=== PATIENT | male | born 1960 | race Caucasian/White ===

== ENCOUNTER 2018-02-09 19:50 | Inpatient (IN) ==
[2018-02-09] MEDS ORDERED: Aspirin 81 MG TAB.CHEW PO ONE (19:58)
--- NOTE | 2018-02-09 20:02 | Emergency Department Note ---
Disposition Clinical Impression: Chest pain Qualifiers: Chest pain type: unspecified Qualified Code(s): R07.9 - Chest pain, unspecified Disposition: Admitted As Inpatient Condition: Fair Forms: ED Satisfaction Letter Time of Disposition: 21:29 Chest Pain HPI - General Chief Complaint: ED Chest Pain Stated Complaint: Chest Pain Time Seen by Provider: 02/09/18 19:58 Source: patient Mode of arrival: ambulatory Limitations: no limitations Vital Signs Reviewed: Yes Nursing Notes Reviewed: Yes - History of Present Illness HPI Narrative: 57-year-old male who states he does not have insurance is been having chest pain that is exertional in nature for several weeks. He has been following up as an outpatient trying to treat with medications but it is only getting worse. Says when he goes up steps he will develop chest pain and then if he rests it goes away. His factors include hypertension, high cholesterol, cigarette smoking, family history. Pt complaint: chest pain Onset (ago): week(s) Duration: intermittent Onset: during exertion Pain Location: substernal, left chest Severity: moderate Severity scale (1-10): 7 Quality: tightness, aching, heaviness Pain Radiation: none Improves with: rest Worsens with: exertion Context: recent illness Associated symptoms: Reports: dyspnea Treatments prior to arrival chest pain: none - Related Data Allergies Allergy/AdvReac Type Severity Reaction Status Date / Time No Known Allergies Allergy Verified 02/09/18 19:56 All systems ED: reviewed and negative except as stated. Constitutional: Denies: fever, chills, weakness, weight change Eyes: Denies: eye pain, eye discharge, vision change ENT ED: Denies: ear pain, throat pain, dental pain, hearing loss, epistaxis, congestion, dysphagia Cardiovascular: Reports: chest pain. Denies: palpitations, dyspnea on exertion , edema, syncope Respiratory: Denies: cough, dyspnea, wheezes, hemoptysis, stridor Gastrointestinal: Denies: abdominal pain, nausea, vomiting, diarrhea, constipation, hematemesis, melena, hematochezia Genitourinary: Denies: urgency, dysuria, frequency, hematuria Musculoskeletal: Denies: back pain, neck pain, arthralgia, myalgia Integumentary: Denies: rash, abrasion, lesions Neurological: Denies: headache, weakness, numbness, paresthesias, confusion, abnormal gait, vertigo Psychiatric: Denies: anxiety, depression, suicidal thoughts, homicidal thoughts , auditory hallucinations, visual hallucinations Endocrine: Denies: fatigue Hematological/Lymphatic: Denies: easy bleeding, easy bruising Allergic/Immunologic: Denies: facial swelling, urticaria Physical Exam - General Limitations: no limitations General appearance: alert, in no apparent distress - Head Head exam: atraumatic, normocephalic, normal inspection - Eye Eye exam: Present: normal appearance, PERRL, EOMI - ENT ENT exam: normal exam, normal oropharynx, mucous membranes moist - Neck Neck exam: Present: normal inspection, full ROM, trachea midline - Chest Chest inspection: Present: normal inspection, symmetric chest wall rise - Respiratory Respiratory exam: Present: normal lung sounds bilaterally - Cardiovascular Cardiovascular exam: Present: regular rate, normal rhythm, normal heart sounds - Abdominal Exam Abdominal exam: Present: soft, Non-Tender. Absent: tenderness, distention, guarding, rebound, rigidity - Extremities Exam Extremities exam: Present: normal inspection, full ROM. Absent: tenderness, pedal edema - Expanded Lower Extremity Exam Neurovascular/Tendon exam: Absent: motor deficit, sensory deficit, tendon deficit Gait: observed and normal - Back Exam Back exam: Present: normal inspection, full ROM. Absent: tenderness - Neurological Exam Neurological exam: Present: alert, oriented X3 - Psychiatric Psychiatric exam: Present: normal affect, normal mood - Skin Skin exam: Present: warm, dry, intact, normal color Course - Reevaluation(s) Reevaluation #1: 57-year-old with multiple risk factors he has exertional chest pain. Clinical history is very worrisome for cardiac etiology chest pain. His workup here in the ER is negative. Patient will be admitted for further evaluation. Time: 21:28 - Consultations Consultation #1: Discussed with , admit. Time: 21:28 Vital Signs Temperature 98.3 F 02/09/18 19:53 Pulse Rate 87 02/09/18 19:53 Respiratory Rate 18 02/09/18 19:53 Blood Pressure 170/77 02/09/18 19:53 O2 Sat by Pulse Oximetry 97 02/09/18 19:53 Temperature 98.3 F 02/09/18 21:19 Pulse Rate 88 02/09/18 21:19 Respiratory Rate 16 02/09/18 21:19 Blood Pressure 149/86 02/09/18 21:19 O2 Sat by Pulse Oximetry 97 02/09/18 21:19 Oxygen Delivery Oxygen Delivery Room Air Chest Pain - Lab Data Result diagrams: 02/09/18 20:32 02/09/18 20:32 Lab Results 02/09/18 02/09/18 02/09/18 Range/Units 20:32 20:32 20:32 WBC 7.4 (4.3-11.1) K/mcL RBC 4.47 (4.19-5.50) M/mcL Hgb 12.7 L (12.9-16.9) g/dL Hct 36.7 L (37.5-50.1) % MCV 82.1 L (83.0-100.0) fL MCH 28.4 (28.0-33.3) pg MCHC 34.6 (31.6-35.5) g/dL RDW 12.8 (11.5-14.5) % Plt Count 226 (140-400) K/mcL MPV 9.3 L (9.4-12.4) fL Immature Gran % 0.1 (0-4) % Seg Neutrophils % 57.4 % Lymphocytes % 33.7 % Monocytes % 6.0 % Eosinophils % 2.4 % Basophils % 0.4 % Neutrophils # 4.3 (1.6-8.9) K/mcL Lymphocytes # 2.5 (0.6-4.6) K/mcL Monocytes # 0.5 (0.0-1.3) K/mcL Eosinophils # 0.2 (0.0-0.6) K/mcL Basophils # 0.0 (0.0-0.2) K/mcL PT 10.8 (9.4-12.1) Seconds INR 1.0 APTT 34.6 (26.0-36.0) Seconds Sodium 138 (136-145) mEq/L Potassium 3.7 (3.5-5.1) mEq/L Chloride 107 (98-107) mEq/L Carbon Dioxide 21 L (23-29) mEq/L BUN 29 H (6-20) mg/dL Creatinine 1.20 (0.70-1.30) mg/dL Est GFR ( Amer) > 60 (> 60) Est GFR (Non-Af Amer) > 60 (> 60) BUN/Creatinine Ratio 24 (6-26) Glucose 134 H (70-105) mg/dL Calculated Osmolality 294 (280-300) Calcium 9.0 (8.6-10.3) mg/dL Troponin I < 0.03 (< 0.04) ng/mL - EKG Data EKG attestation: Yes I reviewed and interpreted this EKG. EKG shows normal: sinus rhythm Rate: normal Rhythm: NSR [place]/QRS: normal Interpretation: no acute changes Heart Score - Score History: Highly Suspicious EKG: Non Specific repolarisation Disturbance Age: 45-65 Risk Factors: Equal/Greater than 3 risk factor or history of atherosclerotic disease Troponin: Less than normal limit HEART Score Total: 6
[2018-02-09 20:44] LABS: Basophils % 0.4 %; Eosinophils # 0.2 K/mcL (0.0-0.6); Eosinophils % 2.4 %; Hematocrit 36.7 % (37.5-50.1); Hemoglobin 12.7 g/dL (12.9-16.9); Immature Granulocytes % 0.1 % (0-4); Lymphocytes # 2.5 K/mcL (0.6-4.6); Lymphocytes % 33.7 %; Mean Corpuscular HGB Conc 34.6 g/dL (31.6-35.5); Mean Corpuscular Hemoglobin 28.4 pg (28.0-33.3); Mean Corpuscular Volume 82.1 fL (83.0-100.0); Mean Platelet Volume 9.3 fL (9.4-12.4); Monocytes # 0.5 K/mcL (0.0-1.3); Neutrophils # 4.3 K/mcL (1.6-8.9); Platelet Count 226 K/mcL (140-400); Red Blood Count 4.47 M/mcL (4.19-5.50); Red Cell Distribution Width 12.8 % (11.5-14.5); Segmented Neutrophils % 57.4 %
[2018-02-09 20:52] LABS: Prothrombin Time 10.8 Seconds (9.4-12.1)
[2018-02-09 20:54] LABS: Activated Partial Thrombo Time 34.6 Seconds (26.0-36.0)
[2018-02-09 21:17] LABS: BUN/Creatinine Ratio 24 (6-26); Blood Urea Nitrogen 29 mg/dL (6-20); Carbon Dioxide 21 mEq/L (23-29); Chloride 107 mEq/L (98-107); Glucose 134 mg/dL (70-105); Osmolality,Calculated 294 (280-300); Potassium 3.7 mEq/L (3.5-5.1); Sodium 138 mEq/L (136-145); Troponin I < 0.03 ng/mL (< 0.04); eGFR For African Americans > 60 (> 60); eGFR For Non-African Americans > 60 (> 60)
[2018-02-09] MEDS ORDERED: Naloxone 0.4 MG/ML INJ IVP PRN (21:32)
[2018-02-09] MEDS ORDERED: Acetaminophen 325 MG TABLET PO PRN (21:32)
[2018-02-09] MEDS ORDERED: Nitroglycerin 0.4 MG TAB.SUBL SL PRN (21:33)
--- NOTE | 2018-02-09 21:49 | Internal Med History&Physical ---
Date of Encounter: 02/09/18 Time of Encounter: 21:46 Internal Medicine - H&P: HPI Chief complaint: Chest pain Admitted From: Emergency Dept Plans for Post Hospital Care: Home History of present illness: Mr. Islas is a 57 year old male with history of tobacco abuse, hypertension , and hyperlipidemia who presents to the ED complaints of chest pain that has been going on for multiple months and worsened for the last couple of weeks. He describes it as constant for the last 2 weeks and worse with exertion and better with rest. It is substernal with radiation to both arms. Associated diaphoresis. Feels like "heavy weight". He did not tell his about it until today and she decided to bring him in. The patient has no insurance and has been going to urgent care on is on and was given a couple of high cholesterol medications. When he presented to the ED he was hemodynamically stable with laboratory workup showing troponins that were not elevated. EKG with no acute ST or T-wave changes. Denies any fever, chills, nausea, vomiting , abdominal pain, diarrhea, constipation, urinary symptoms, or neurological symptoms. Past Med Surg Social Fam HX - Past Medical History Medical history: hypertension Additional medical history: Chronic Bronchitis Psychiatric history: no psych history - Social History Smoking Status: Current every day smoker Smokeless Tobacco Status: No Alcohol use: none Drug use: none Internal Medicine - H&P: Meds 3 Allergy/AdvReac Type Severity Reaction Status Date / Time No Known Allergies Allergy Verified 02/09/18 19:56 All Systems PM: A 10-system review of systems was performed and is negative for pertinent findings except as documented above in the HPI. Review of systems: All systems reviewed are negative except for as mentioned above - Constitutional Vitals: Temp Pulse Resp BP Pulse Ox 98.3 F 88 16 149/86 97 02/09/18 21:19 02/09/18 21:19 02/09/18 21:19 02/09/18 21:19 02/09/18 21:19 Exam: GEN: NAD HEENT: AT, NC, No cyanosis, oral mucosa is moist, No JVD Lymphatics: No lymphadenoapthy Eyes: Extrocular muscles intact, anicteric CVS:RRR. S1, S2, No m/r/g RESP: CTAB ABD: Soft, NT, ND, +BS EXT: No edema, No rashes, 2+ DP NEURO: Nonfocal, CN II-XII intact, No focal motor or sensory deficits Psych: Cooperative, Not anxious or depressed Internal Med - H&P Results - Labs CBC & Chem 7: 02/09/18 20:32 02/09/18 20:32 Labs: Short CBC 02/09/18 Range/Units 20:32 WBC 7.4 (4.3-11.1) K/mcL Hgb 12.7 L (12.9-16.9) g/dL Hct 36.7 L (37.5-50.1) % Plt Count 226 (140-400) K/mcL Neutrophils # 4.3 (1.6-8.9) K/mcL BMP 02/09/18 20:32 Sodium 138 Potassium 3.7 Chloride 107 Carbon Dioxide 21 L BUN 29 H Creatinine 1.20 Glucose 134 H Calcium 9.0 Cardiac Enzymes 02/09/18 Range/Units 20:32 Troponin I < 0.03 (< 0.04) ng/mL - Impressions ITS Impressions Chest X-Ray 02/09/18 19:58 IMPRESSION: No acute process. D/ / Clyde Wahl MD / Clyde Wahl MD Interpreting Provider: Clyde Wahl MD - Assessment and plan (1) Chest pain Current Visit: Yes Status: Acute Assessment and plan: Admit to telemetry. Trend cardiac enzymes. Stress test in the morning. Check lipid panel and A1c. Aspirin given in the ED. Sublingual nitroglycerin when necessary. Patient has multiple risk factors including tobacco abuse, family history, hypertension, hyperlipidemia. Qualifiers: Chest pain type: unspecified Qualified Code(s): R07.9 - Chest pain, unspecified (2) HTN (hypertension) Current Visit: Yes Status: Acute Assessment and plan: Resume home antihypertensives Qualifiers: Hypertension type: essential hypertension Qualified Code(s): I10 - Essential (primary) hypertension (3) HLD (hyperlipidemia) Current Visit: Yes Status: Acute Assessment and plan: Resume home Qualifiers: Hyperlipidemia type: unspecified Qualified Code(s): E78.5 - Hyperlipidemia , unspecified (4) Tobacco abuse Current Visit: Yes Status: Acute Assessment and plan: Nicotine patch (5) DVT prophylaxis Current Visit: Yes Status: Acute Assessment and plan: Heparin subcutaneous - Time Spent With Patient Total time spent is greater than 50% in coordination of care (as documented) at patient's floor/unit and/or counseling patient:
[2018-02-09] MEDS: Nicotine 21 MG PATCH.TD24 TD SCH (22:39)
[2018-02-09] MEDS: *HR* Heparin 5,000 UNIT/ML VIAL SQ SCH (22:40)
[2018-02-10 02:15] LABS: Basophils % 0.6 %; Eosinophils # 0.2 K/mcL (0.0-0.6); Eosinophils % 2.4 %; Hematocrit 35.1 % (37.5-50.1); Hemoglobin 12.1 g/dL (12.9-16.9); Immature Granulocytes % 0.3 % (0-4); Lymphocytes # 2.4 K/mcL (0.6-4.6); Lymphocytes % 35.8 %; Mean Corpuscular HGB Conc 34.5 g/dL (31.6-35.5); Mean Corpuscular Hemoglobin 28.4 pg (28.0-33.3); Mean Corpuscular Volume 82.4 fL (83.0-100.0); Mean Platelet Volume 9.4 fL (9.4-12.4); Monocytes # 0.5 K/mcL (0.0-1.3); Monocytes % 7.6 %; Neutrophils # 3.5 K/mcL (1.6-8.9); Platelet Count 224 K/mcL (140-400); Red Blood Count 4.26 M/mcL (4.19-5.50); Segmented Neutrophils % 53.3 %
[2018-02-10 02:39] LABS: BUN/Creatinine Ratio 24 (6-26); Blood Urea Nitrogen 28 mg/dL (6-20); Carbon Dioxide 22 mEq/L (23-29); Chloride 108 mEq/L (98-107); Chol/HDL Ratio 7.4 (0-4.9); Cholesterol 266 mg/dL (< 200); Glucose 101 mg/dL (70-105); HDL Cholesterol 36 mg/dL (40-59); LDL Cholesterol,Calculated 168 mg/dL (0-99); Osmolality,Calculated 290 (280-300); Potassium 3.9 mEq/L (3.5-5.1); Sodium 137 mEq/L (136-145); Triglycerides 310 mg/dL (< 150); eGFR For African Americans > 60 (> 60); eGFR For Non-African Americans > 60 (> 60)
[2018-02-10 02:51] LABS: Thyroid Stimulating Hormone 3.344 mcIU/mL (0.340-5.600)
[2018-02-10] MEDS: *HR* Heparin 5,000 UNIT/ML VIAL SQ SCH ×3 (05:48→22:43)
[2018-02-10 06:43] LABS: Estimated Average Glucose 123 mg/dl; Hemoglobin A1C 5.9 %
[2018-02-10] MEDS ORDERED: Regadenoson 0.4 MG/5 ML SYRINGE IVP ONE (06:49)
[2018-02-10] MEDS ORDERED: Isovue-370 500 ML INFUS..BTL IV ONE (12:37)
[2018-02-10] MEDS: predniSONE 20 MG TABLET PO SCH (12:57)
[2018-02-10] MEDS: Lisinopril-HCTZ 20-12.5mg TABLET PO SCH (12:57)
[2018-02-10] MEDS: Aspirin Enteric Coated 81 MG Tablet PO SCH (12:57)
[2018-02-10] MEDS: Cholestyramine 4 GM POWD.PACK PO SCH ×2 (13:02→18:01)
[2018-02-10] MEDS: Nicotine 21 MG PATCH.TD24 TD SCH (13:03)
[2018-02-10] MEDS ORDERED: 0.9 % Sodium Chloride 1,000 ML IVC SCH (14:15)
--- NOTE | 2018-02-10 14:16 | Internal Med Progress Note ---
Date of Encounter: 02/10/18 Time of Encounter: 14:14 - Assessment and plan (1) Chest pain Current Visit: Yes Status: Acute Assessment and plan: presented with central chest pressure/tightness that radiates to bilateral shoulders with associated shortness of breath. Serial troponins negative. EKG without acute ST changes. Stress test with moderate to severe intensity fixed perfusion defect representing infarct, EF 40% and LV is dilated. Cont home ASA, add isosorbide. Cardiology consulted. Continue to monitor on telemetry. Check chest CTA with significant smoking history, history of hypertension and reported shortness of breath. Qualifiers: Chest pain type: unspecified Qualified Code(s): R07.9 - Chest pain, unspecified (2) COPD exacerbation Current Visit: Yes Status: Acute Assessment and plan: Suspected with smoking history, SOB and wheezing on exam. No increase in sputum production, afebrile. No indication for ATB at this time. Steroid burst , bronchodilators. (3) HTN (hypertension) Current Visit: Yes Status: Acute Assessment and plan: per hx. BP controlled. Continue home BP medication. Monitor BP and titrate PRN Qualifiers: Hypertension type: essential hypertension Qualified Code(s): I10 - Essential (primary) hypertension (4) HLD (hyperlipidemia) Current Visit: Yes Status: Acute Assessment and plan: per hx. Cont home medications Qualifiers: Hyperlipidemia type: unspecified Qualified Code(s): E78.5 - Hyperlipidemia , unspecified (5) Tobacco abuse Current Visit: Yes Status: Acute Assessment and plan: History heavy tobacco use. Smokes 2 packs per day for 40 years. Cessation advised. NRT (6) DVT prophylaxis Current Visit: Yes Status: Acute Assessment and plan: Heparin - Time Spent With Patient Total time spent is greater than 50% in coordination of care (as documented) at patient's floor/unit and/or counseling patient: - Subjective Interval history: Seen and examined at bedside. Patient is new to me, information obtained from chart review and patient report. He still complaining of central chest tightness/discomfort that radiates to both shoulders. Nothing makes better or worse. Not reproducible on exam. Also reports associated shortness of breath and wheezing. No fevers or chills. - Constitutional Vitals: Temp Pulse Resp BP Pulse Ox 98.1 F 71 16 118/72 99 02/10/18 11:54 02/10/18 11:54 02/10/18 11:54 02/10/18 11:54 02/10/18 11:54 General appearance: Present: A&O X 3, no acute distress - Head Head exam: Present: atraumatic, normocephalic - Eye Eye exam: Present: PERRL, conjuntiva pink, sclera anicteric Pupils: Present: PERRL - Neck Neck exam general surgery: Present: supple, trachea midline. Absent: lymphadenopathy - Respiratory Respiratory exam: Present: CTAB, wheezes (Mild wheezing). Absent: accessory muscle use, rales, rhonchi - Cardiovascular Cardiovascular exam: Present: RRR, +S1, +S2. Absent: diastolic murmur, gallop, rubs, systolic murmur - GI/Abdominal GI/Abdominal exam: Present: normal bowel sounds, soft, no peritoneal signs. Absent: distended, tenderness - Extremities Exam Extremities exam: Present: warm, radial pulses palpable and symmetrical. Absent : calf tenderness, cyanotic, pedal edema - Neurological Exam Neurological exam: Present: CN II-XII intact, oriented X3, no focal deficits. Absent: pronater drift, facial droop, speech deficit - Skin Skin exam: Present: dry, intact Internal Medicine: Result - Labs CBC & Chem 7: 02/10/18 02:01 02/10/18 02:01 Labs: Short CBC 02/10/18 Range/Units 02:01 WBC 6.6 (4.3-11.1) K/mcL Hgb 12.1 L (12.9-16.9) g/dL Hct 35.1 L (37.5-50.1) % Plt Count 224 (140-400) K/mcL Neutrophils # 3.5 (1.6-8.9) K/mcL BMP 02/10/18 02:01 Sodium 137 Potassium 3.9 Chloride 108 H Carbon Dioxide 22 L BUN 28 H Creatinine 1.17 Glucose 101 Calcium 9.0 Cardiac Enzymes 02/10/18 02/10/18 Range/Units 02:01 09:19 Troponin I < 0.03 < 0.03 (< 0.04) ng/mL - ABG Interpretation ABG results: PT/INR, D-dimer PT 10.8 Seconds (9.4-12.1) 02/09/18 20:32 Consult Discharge Plan - Plan Referrals: Anya Bullard CNP [Primary Care Provider] -
[2018-02-10] MEDS: Ipratropium/Albuterol Neb 3 ML IH SCH ×2 (16:03→22:13)
[2018-02-10] MEDS: Lisinopril 20 MG TABLET PO SCH (18:02)
[2018-02-10] MEDS: Isosorbide MONOnitrate (24 HR) 30 MG TAB.ER.24H PO SCH (18:10)
[2018-02-11] MEDS: Ipratropium/Albuterol Neb 3 ML IH SCH ×4 (04:13→21:27)
[2018-02-11] MEDS: *HR* Heparin 5,000 UNIT/ML VIAL SQ SCH ×3 (05:35→21:43)
[2018-02-11 07:03] LABS: Basophils % 0.1 %; Eosinophils % 0.2 %; Hematocrit 33.2 % (37.5-50.1); Hemoglobin 11.4 g/dL (12.9-16.9); Immature Granulocytes % 0.3 % (0-4); Lymphocytes # 1.3 K/mcL (0.6-4.6); Lymphocytes % 15.4 %; Mean Corpuscular HGB Conc 34.3 g/dL (31.6-35.5); Mean Corpuscular Hemoglobin 28.6 pg (28.0-33.3); Mean Corpuscular Volume 83.4 fL (83.0-100.0); Mean Platelet Volume 9.7 fL (9.4-12.4); Monocytes # 0.6 K/mcL (0.0-1.3); Monocytes % 6.9 %; Neutrophils # 6.7 K/mcL (1.6-8.9); Platelet Count 213 K/mcL (140-400); Red Blood Count 3.98 M/mcL (4.19-5.50); Red Cell Distribution Width 13.2 % (11.5-14.5); Segmented Neutrophils % 77.1 %
[2018-02-11 07:19] LABS: BUN/Creatinine Ratio 23 (6-26); Blood Urea Nitrogen 26 mg/dL (6-20); Calcium 8.5 mg/dL (8.6-10.3); Carbon Dioxide 22 mEq/L (23-29); Chloride 108 mEq/L (98-107); Glucose 129 mg/dL (70-105); Osmolality,Calculated 290 (280-300); Potassium 3.7 mEq/L (3.5-5.1); Sodium 137 mEq/L (136-145); eGFR For African Americans > 60 (> 60); eGFR For Non-African Americans > 60 (> 60)
[2018-02-11] MEDS: Aspirin Enteric Coated 81 MG Tablet PO SCH (09:57)
[2018-02-11] MEDS: predniSONE 20 MG TABLET PO SCH (09:57)
[2018-02-11] MEDS: Lisinopril-HCTZ 20-12.5mg TABLET PO SCH (09:57)
[2018-02-11] MEDS: Isosorbide MONOnitrate (24 HR) 30 MG TAB.ER.24H PO SCH (09:57)
[2018-02-11] MEDS: Nicotine 21 MG PATCH.TD24 TD SCH (09:57)
[2018-02-11] MEDS: Cholestyramine 4 GM POWD.PACK PO SCH ×2 (09:58→16:00)
--- NOTE | 2018-02-11 13:34 | Cardiology Consult Note ---
<Luz Mari - Last Filed: 02/11/18 13:31> Date of Encounter: 02/11/18 Time of Encounter: 11:30 Assessment and Plan (1) Chest pain Status: Acute Per cardiology: -Atypical chest pain. Pain lessens with exertion. -Denies current chest pain. -Stress test with area on inferolateral infarct, no ischemia. -TTE pending. -On asa, imdur. -Risk factors for CAD HTN, HLD, Smoking, Family history. -Will start statin, BB. -PLan for LHC in am. Risks versus benefits of LHC explained to patient. Patient states understanding and agreeable to proceed. Further recommendations pending LHC. Qualifiers: Chest pain type: unspecified Qualified Code(s): R07.9 - Chest pain, unspecified (2) Tobacco abuse Status: Chronic Per cardiology: -Reports smoking 2+ ppd for 40+ years. -Smoking cessation education reviewed with patient. Discussion w patient/family: The assessment and plan as outlined above was discussed with the patient who expressed understanding and agreement. All questions were answered. Thank you for involving us in the care of your patient. Please call with any questions. Discussed and reviewed with , History of Present Illness Consult date: 02/10/18 Requesting physician: Jen Hunter Consult reason: abnornmal stress Chief complaint: chest heaviness History of present illness: Mr. Islas is a 57 year old male with a relevant past medical history of HTN , HLD, tobacco abuse, family history of CAD who presented to [facility] with complaints of chest heaviness. Patient reports symptoms for 2 weeks. Patient states pain is worse when laying down or sitting still. Patient states pain is better with exertion. Reports increased shortness of breath. Denies current chest heaviness. Past Med Surg Social Fam HX - Past Medical History Attestation: Yes The following information was validated with the patient. Source: patient, old records reviewed Medical history: hyperlipidemia, hypertension Additional medical history: Chronic Bronchitis Psychiatric history: no psych history - Social History Smoking Status: Current every day smoker Packs per day: 1.5 Smokeless Tobacco Status: No Alcohol use: none Drug use: none Medications and Allergies Aspirin [Lo-Dose Aspirin EC] 81 mg PO DAILY 02/09/18 [History] Cholestyramine 4 gm PO BIDAC 02/09/18 [History] Ibuprofen [Ibu] 400 mg PO Q6H PRN 02/09/18 [History] Metoprolol [Lopressor] 25 mg PO BID #60 tablet 02/17/18 [Rx] Nicotine Patch [Nicoderm] 21 mg TD DAILY #14 patch.td24 02/17/18 [Rx] OxyCODONE/APAP 5/325 [Percocet 5/325 MG] 1 each PO Q4HR PRN 7 Days #20 tablet [Rx] hydroCHLOROthiazide [Hydrochlorothiazide] 12.5 mg PO DAILY #30 tablet 02/17/18 [ Rx] 3 Allergy/AdvReac Type Severity Reaction Status Date / Time No Known Allergies Allergy Verified 02/09/18 19:56 All Systems Review: The remainder of the systems were reviewed and are negative - Cardiovascular Cardiovascular: as per HPI, chest pain at rest, dyspnea on exertion Physical Examination Vital Signs, Last 4 Hours Temp Pulse Resp BP Pulse Ox 02/11/18 12:16 97.6 F 77 18 111/57 94 General: Conversant, No Apparent Distress HEENT: Atraumatic, Normocephaly, Mucus Membranes Moist Neck: No JVD, Normal carotid pulses Cardiac: Reg Rate and Rhythm, Normal S1 and S2, No Murmur Lungs: Normal Breath Sounds, No Wheeze, Rales, Rhonchi Neuro: Alert and responsive, No focal deficits noted Abdomen: Soft, Non-Tender Skin: No rashes noted on visualized skin Musculoskeletal: No Chest Wall Tenderness Extremities: No Clubbing, No Cyanosis, No Edema, Normal Pulses Results 02/11/18 06:27 02/11/18 06:27 Lab Results Impressions Chest CTA 02/10/18 12:37 IMPRESSION: 1. No findings of pulmonary embolism. 2. Mild bronchial wall thickening potentially due to pulmonary vascular congestion, reactive airways disease, or bronchitis. 3. A few solid nodules in the right upper lobe measure up to 0.3 cm, likely benign sequelae of an infectious or inflammatory process. Consider follow-up chest CT in 12 months as below. RECOMMENDATIONS: Fleischner Society guidelines for follow-up and management of incidentally detected pulmonary nodules: Multiple Solid Nodules: Nodule size less than 6 mm In a high-risk patient, optional CT at 12 months. Radiology 2017 http://pubs.rsna.org/doi/full/10.1148/radiol.[email or web address] D/ / Alexander Lang MD / Alexander Lang MD Interpreting Provider: Alexander Lang MD Active Medications Acetaminophen (Tylenol) 650 mg PO Q6HR PRN PRN Reason: Mild Pain/Fever Stop: 08/11/18 21:33 Albuterol/Ipratropium (Duoneb) 3 ml IH [id number] MADELYN Stop: 08/12/18 16:01 Last Admin: 02/11/18 10:12 Dose: Not Given Aspirin (Aspirin Ec) 81 mg PO DAILY MADELYN Stop: 08/12/18 09:01 Last Admin: 02/11/18 09:57 Dose: 81 mg Cholestyramine Resin (Cholestyramine) 4 gm PO BIDAC MADELYN Stop: 08/12/18 07:31 Last Admin: 02/11/18 09:58 Dose: 4 gm Guaifenesin (Mucinex) 600 mg PO BID PRN PRN Reason: Congestion Stop: 08/13/18 03:35 Last Admin: 02/11/18 05:35 Dose: 600 mg Lisinopril/HCTZ (Prinzide 20-12.5) 1 each PO QAM MADELYN Stop: 08/12/18 09:01 Last Admin: 02/11/18 09:57 Dose: 1 each Heparin Sodium (Porcine) (Heparin) 5,000 unit SQ Q8HCO MADELYN Stop: 08/11/18 22:01 Last Admin: 02/11/18 05:35 Dose: 5,000 unit Heparin Sodium (Porcine) (Heparin Lock) 500 unit IV ONCE PRN PRN Reason: Port [place]ush while in RADIOLOGY Stop: 02/12/18 12:37 Isosorbide Mononitrate (Imdur) 30 mg PO DAILY MADELYN Stop: 08/12/18 14:16 Last Admin: 02/11/18 09:57 Dose: 30 mg Lisinopril (Zestril) 20 mg PO QPM MADELYN PRN Reason: Protocol Stop: 08/12/18 18:01 Last Admin: 02/10/18 18:02 Dose: 20 mg Naloxone HCl (Narcan) 0.4 mg IVP Q2MIN PRN PRN Reason: SEE COMMENTS Stop: 08/11/18 21:33 Nicotine (Nicoderm) 21 mg TD DAILY MADELYN PRN Reason: Protocol Stop: 08/11/18 22:01 Last Admin: 02/11/18 09:57 Dose: 21 mg Nitroglycerin (Nitroglycerin) 0.4 mg SL Q5MIN PRN PRN Reason: Chest Pain Stop: 08/11/18 21:34 Prednisone (Prednisone) 40 mg PO DAILY MADELYN Stop: 08/12/18 12:46 Last Admin: 02/11/18 09:57 Dose: 40 mg Laboratory Tests 02/09/18 02/10/18 02/10/18 20:32 02:01 02:01 Hgb Creatinine Troponin I < 0.03 < 0.03 LDL Cholesterol, Calc 168 H 02/10/18 02/11/18 02/11/18 09:19 06:27 06:27 Hgb 11.4 L Creatinine 1.13 Troponin I < 0.03 LDL Cholesterol, Calc - Imaging and Cardiology Chest Xray: report reviewed Stress Test: report reviewed Echo: pending - EKG Interpretation EKG results cardiology: personally reviewed (ECG with SR, HR 85.), other ( Telemetry reviewed with average HR previous 12 hours noted to be 81, SR. PVCs and PACs noted.) Consult Discharge Plan - Plan Instructions: Myocardial Infarction (DC), Chest Pain (DC), Chronic Obstructive Pulmonary Disease (DC), Chronic Hypertension (DC) Referrals: David Saleem MD [Partnered Physician] - 03/13/18 1:15 pm Anya Bullard CNP [Primary Care Provider] - 02/21/18 5:00 pm (Office is only Open on Mon, Mon, 5-9pm Saturdays 9A to1:00PM Patient will have to call and make follow up appointment) Ammon Hagen [Partnered Physician] - 04/02/18 11:30 am Prescriptions: OxyCODONE/APAP 5/325 [Percocet 5/325 MG] 1 each PO Q4HR PRN 7 Days #20 tablet PRN Reason: Severe Pain hydroCHLOROthiazide [Hydrochlorothiazide] 12.5 mg PO DAILY #30 tablet Metoprolol [Lopressor] 25 mg PO BID #60 tablet Nicotine Patch [Nicoderm] 21 mg TD DAILY #14 patch.td24 <Muñoz,Magno J - Last Filed: 02/19/18 23:38> Date of Encounter: 02/11/18 Time of Encounter: 19:00 - Attending Attestation I have personally performed a face to face evaluation on this patient. I have reviewed and agree with the care plan. History and Exam by me shows CC: Chest pressure Pt reports chest heaviness, occurs with exertion, pressure sensation, provoked when lying down, improves with increased activity. PT also admits to new onset of shortness of breath, occurs with exertion, lasts two to five minutes, resolves with rest. Shorntess of breath is not associated with chest pain or pressure. Pt is an active smoker, up to 2 packs a day for over forty years. ROS: reviwed PMH: reviewed, PE: pt seen and examined, agreed with findings as documented IMP: 1. Atypical chest pain, with multiple risk factors, recommend C to define coronary anatomy, risks and benefits discussed, pt agrees to proceed. 2. Shortness of breath with exertion, very concenring for anginal equivalent, will increase to optimal medical tx, await results of LHC 3. Tobacco abuse, discussed smoking cessation, pt will consider but unwilling ot pick stop date today. Assessment and Plan Discussion w patient/family: The assessment and plan as outlined above was discussed with the patient and/or family members who expressed understanding and agreement. All questions were answered. Thank you for involving us in the care of your patient. Please call with any questions. History of Present Illness History of present illness: Mr. Islas is a 57 year old male All Systems Review: The remainder of the systems were reviewed and are negative Results 02/17/18 00:22 02/17/18 00:22
--- NOTE | 2018-02-11 15:17 | Internal Med Progress Note ---
Date of Encounter: 02/11/18 Time of Encounter: 15:15 - Assessment and plan (1) Chest pain Current Visit: Yes Status: Acute Assessment and plan: presented with central chest pressure/tightness that radiates to bilateral shoulders with associated shortness of breath. Serial troponins negative. EKG without acute ST changes. Stress test with moderate to severe intensity fixed perfusion defect representing infarct, EF 40% and LV is dilated. TTE pending. Cont home ASA. Isosorbide, BB, statin added. Cardiology consulted. Continue to monitor on telemetry. [facility] planned 02/12/18. Cardiology following Qualifiers: Chest pain type: unspecified Qualified Code(s): R07.9 - Chest pain, unspecified (2) COPD exacerbation Current Visit: Yes Status: Acute Assessment and plan: Suspected with smoking history, SOB and wheezing on exam. No increase in sputum production, afebrile. No indication for ATB at this time. Steroid burst , bronchodilators. (3) HTN (hypertension) Current Visit: Yes Status: Acute Assessment and plan: per hx. BP controlled. Continue home BP medication. Monitor BP and titrate PRN Qualifiers: Hypertension type: essential hypertension Qualified Code(s): I10 - Essential (primary) hypertension (4) HLD (hyperlipidemia) Current Visit: Yes Status: Acute Assessment and plan: per hx. Cont home medications Qualifiers: Hyperlipidemia type: unspecified Qualified Code(s): E78.5 - Hyperlipidemia , unspecified (5) Tobacco abuse Current Visit: Yes Status: Chronic Assessment and plan: History heavy tobacco use. Smokes 2 packs per day for 40 years. Cessation advised. NRT (6) Lung nodule Current Visit: Yes Status: Acute Assessment and plan: Chest CTA with a few solid nodules in the right upper lobe measuring up to 0.3 cm. Likely secondary to an infectious or inflammatory process. Recommend repeat chest CT in 12 months (7) DVT prophylaxis Current Visit: Yes Status: Acute Assessment and plan: Heparin - Time Spent With Patient Total time spent is greater than 50% in coordination of care (as documented) at patient's floor/unit and/or counseling patient: - Subjective Interval history: Seen and examined at bedside. HEENT in bed, appears comfortable. Says his breathing is better. Still having intermittent chest tightness that radiates to her bilateral shoulders. Not currently having chest pain. - Constitutional Vitals: Temp Pulse Resp BP Pulse Ox 97.6 F 77 18 111/57 94 02/11/18 12:16 02/11/18 12:16 02/11/18 12:16 02/11/18 12:16 02/11/18 12:16 General appearance: Present: A&O X 3, no acute distress - Head Head exam: Present: atraumatic, normocephalic - Eye Eye exam: Present: PERRL, conjuntiva pink, sclera anicteric Pupils: Present: PERRL - Neck Neck exam general surgery: Present: supple, trachea midline. Absent: lymphadenopathy - Respiratory Respiratory exam: Present: CTAB. Absent: accessory muscle use, rales, rhonchi, wheezes - Cardiovascular Cardiovascular exam: Present: RRR, +S1, +S2. Absent: diastolic murmur, gallop, rubs, systolic murmur - GI/Abdominal GI/Abdominal exam: Present: normal bowel sounds, soft, no peritoneal signs. Absent: distended, tenderness - Extremities Exam Extremities exam: Present: warm, radial pulses palpable and symmetrical. Absent : calf tenderness, cyanotic, pedal edema - Neurological Exam Neurological exam: Present: CN II-XII intact, oriented X3, no focal deficits. Absent: pronater drift, facial droop, speech deficit - Skin Skin exam: Present: dry, intact Internal Medicine: Result - Labs CBC & Chem 7: 02/11/18 06:27 02/11/18 06:27 Labs: Short CBC 02/11/18 Range/Units 06:27 WBC 8.7 (4.3-11.1) K/mcL Hgb 11.4 L (12.9-16.9) g/dL Hct 33.2 L (37.5-50.1) % Plt Count 213 (140-400) K/mcL Neutrophils # 6.7 (1.6-8.9) K/mcL BMP 02/11/18 06:27 Sodium 137 Potassium 3.7 Chloride 108 H Carbon Dioxide 22 L BUN 26 H Creatinine 1.13 Glucose 129 H Calcium 8.5 L - ABG Interpretation ABG results: PT/INR, D-dimer PT 10.8 Seconds (9.4-12.1) 02/09/18 20:32 - Impressions Impressions Chest CTA 02/10/18 12:37 IMPRESSION: 1. No findings of pulmonary embolism. 2. Mild bronchial wall thickening potentially due to pulmonary vascular congestion, reactive airways disease, or bronchitis. 3. A few solid nodules in the right upper lobe measure up to 0.3 cm, likely benign sequelae of an infectious or inflammatory process. Consider follow-up chest CT in 12 months as below. RECOMMENDATIONS: Fleischner Society guidelines for follow-up and management of incidentally detected pulmonary nodules: Multiple Solid Nodules: Nodule size less than 6 mm In a high-risk patient, optional CT at 12 months. Radiology 2017 http://pubs.rsna.org/doi/full/10.1148/radiol.3952634485 D/ / Alexander Lang MD / Alexander Lang MD Interpreting Provider: Alexander Lang MD Echocardiogram Limited Views 02/11/18 07:00 Impressions: Findings: Consult Discharge Plan - Plan Referrals: Anya Bullard CNP [Primary Care Provider] -
--- NOTE | 2018-02-11 15:34 | Event Note ---
Date of Encounter: 02/11/18 Time of Encounter: 15:32 Statin stopped due to history of myalgias. Continue home Questran. LDL elevated, previous LDL level unknown. Advised on dietary modifications. Will need repeat lipid panel in 6-8 weeks
[2018-02-11] MEDS: Metoprolol XL (24 HR) Succ 25 MG TAB.ER.24H PO SCH (16:00)
[2018-02-11] MEDS: Lisinopril 20 MG TABLET PO SCH (17:53)
[2018-02-12] MEDS: Ipratropium/Albuterol Neb 3 ML IH SCH ×4 (03:40→21:13)
[2018-02-12] MEDS: *HR* Heparin 5,000 UNIT/ML VIAL SQ SCH ×3 (05:15→22:07)
[2018-02-12] MEDS ORDERED: *HR* Heparin 10,000 UNIT/10 ML VIAL ONE (08:53)
[2018-02-12] MEDS ORDERED: ISOVUE-370 200 ML INFUS..BTL IV ONE (08:53)
[2018-02-12] MEDS ORDERED: 0.9 % Sodium Chloride 1,000 ML ONE ×2 (08:53→08:54)
[2018-02-12] MEDS ORDERED: Heparin 1,000 UNITS/500 mL 500 ML ONE (08:53)
[2018-02-12] MEDS ORDERED: Nitroglycerin 1,000 MCG/10 ML VIAL IV ONE (08:53)
--- NOTE | 2018-02-12 08:56 | Pre-Sedation Evaluation ---
Pre-sedation evaluation - Pre-sedation checklist Date of procedure: 02/12/18 Procedure: LHC Recent Vitals: Last Vital Signs Temp 98.0 F 02/12/18 07:04 Pulse 66 02/12/18 07:04 Resp 15 02/12/18 07:04 BP 116/57 02/12/18 07:04 Pulse Ox 97 02/12/18 07:04 ASA Classification *see protocol: CLASS II-Mild systemic disease
[2018-02-12] MEDS ORDERED: *HR* Midazolam HCl 2 MG/2 ML VIAL ONE (10:21)
[2018-02-12] MEDS ORDERED: *HR* FentaNYL (PF) 100 MCG/2 ML VIAL ONE (10:22)
--- NOTE | 2018-02-12 11:16 | Invasive Diagnostic Lab Proc ---
Name: Gerald Islas Date of Study: 02/12/2018 Date: 1960 Ht: 70.1in Medical Record#: [id number] Age: 57 Wt: 189.60lb Gender: Male BSA: 2.04 Order #: [id number] BMI: 27.14 Physicians Procedure Physician: Ammon Hagen MD Referring MD: Referring MD: Staff Name Position [facility] Monitor 10:17 AM Ulisses Rutledge RN 10:17 AM Dorene Dela Cruz RN Line Therapist 10:18 AM Malu Padilla RN Line Therapist 10:18 AM Mana Harry RT (R) Scrub 10:18 AM Indications Indication Abnormal Test - Stress Procedures Performed Procedure L HRT ARTERY/VENTRICLE ANGIO Pre-Procedure Checklist Informed consent is complete signed and on chart. H&P is on chart. ID band is on and ID verified with patient. Patient NPO for procedure The procedure was described for the patient and questions were answered. Blood Pressure: 116/57 ECG is on chart. Plan of Care Patient will tolerate the procedure without complications. Adequate level of comfort will be maintained. Hemodynamics will remain stable Patient will recover from procedure without complications. Respiratory function will be maintained. Cardiac rhythm will remain stable. Patient temperature will be maintained. Patient and/or family have verbalized understanding of the procedure. Patient Education Chief Complaint/Reason for Test: Cardiac Cath Developmental Category: Adult (18-64 years) Developmentally Appropriate for Age: Yes Learning Barriers: None Education Needs: Plan of Care Education Method: Verbal Information Taught: Cardiac Cath Educational Evaluation: Able to repeat information Intravenous Access Time IV Size Location DC'd Fluid/Drip Rate Units RN 09:15 AM 20g 1 /" Patent On Arrival Rt Antecubital Allergies No Known Allergies Vital Signs Time BP (mmHg) HR (bpm) O2 Sat. RR (bpm) LOC 09:15 AM 116 / 57 66 97 % 15 5 = Fully awake and oriented or at pre-proc level 10:19 AM / % 5 = Fully awake and oriented or at pre-proc level 10:19 AM / % 4 = Oriented but drowsy 10:34 AM / % 4 = Oriented but drowsy 10:21 AM 144 / 79 75 100 % 10:25 AM 139 / 82 75 100 % 10:30 AM 132 / 77 75 100 % 10:35 AM 134 / 80 76 98 % 10:40 AM 131 / 78 76 96 % 10:45 AM 142 / 86 81 97 % 10:50 AM 143 / 83 83 100 % 10:49 AM / % 5 = Fully awake and oriented or at pre-proc level Procedural Medications Time Medication Dose Units Method Given By 10:18 AM Oxygen 2 L/min nasal cannula Malu Padilla RN 10:28 AM Versed 1 mg Intravenous Malu Padilla RN 10:28 AM Fentanyl 50 mcg Intravenous Malu Padilla RN 10:32 AM Lidocaine 2% 20 ml Subcutaneous Ammon Hagen MD ASA Classification: CLASS II- Mild systemic disease (i.e. well-controlled diabetes, hypertension, asthma, cigarette smoking) Kelby Score Preprocedure Postprocedure Activity 2- Moves 4 extremities sustained head lift Activity 2- Moves 4 extremities sustained head lift Circulation 2- SBP +/= 20 points of pre-anesthetic level Circulation 2- SBP +/= 20 points of pre-anesthetic level Consciousness 2- Awake and alert oriented x 3 Consciousness 2- Awake and alert oriented x 3 O2 Saturation 2- Able to maintain O2 satruation of 92% on room air O2 Saturation 2- Able to maintain O2 satruation of 92% on room air Respiratory 2- Able to deep breathe and cough well Respiratory 2- Able to deep breathe and cough well Total Score 10 Total Score 10 Contrast Agent: Isovue Diagnostic Contrast: 64 ml Total Contrast: 64 ml Fluoro Dose: 491 mGy Procedure Log Time Note Enter By 10:17 AM [facility] kiln labourer [facility] 10[facility]17 AM Jennifer Cleveland RN Position: Monitor Time in: 10:17 [facility] 10:17 AM Ulisses Rutledge RN Position: [facility]: 10:17 [facility] AM Dorene Dela Cruz RN Position: Line Therapist Time in: 10:18 [facility] 10[facility]18 AM Malu Padilla RN Position: Line Therapist Time in: :18 [facility] 10:18 AM Mana Harry RT (R) Position: Scrub Time in: 10:18 [facility] 10:18 AM Patient charges- Angio tray pack, Navilyst 3mm J, Pulse Oximetry and ACIST tubing and transducer [facility] 10:18 AM Case Delayed No jcallihan 10:18 AM Hair removed from procedure site in procedure lab using clippers. Bilateral groin prepped with Chloraprep by Dorene Dela Cruz RN, then patient was draped. Skin intact. jcallihan 10:18 AM Physican paged/called :18. jcallihan 10:18 AM Physican responded and notified patient is ready 10:18 jcallihan 10:18 AM [facility] 10[facility] AM Meet and greet completed [facility] 10[facility]18 AM Sign in performed according to hospital policy. jcallihan 10:18 AM Procedure start :18 jcallan 10: AM Time: :18 Oxygen on at 2 L/min per nasal cannula by Malu Padilla RN [facility] 10:18 AM CathStat : AM Time: :19 Patient comfortable and pain free: Yes jcallihan : AM Time: 10:19LOC: 5 = Fully awake and oriented or at pre-proc level [facility] 10:20 AM Recorded ECG: HR=81 Condition=Condition 1 10: AM Vitals capture started with the following parameters, Patient=Adult, Interval=5 min, Initial Qweqlwkq=373 mmHg, Deflation Rate=5 mmHg, Cuff placed on Right Arm 10:21 AM HR=75 bpm, PAXI=504/79 mmhg, FvX0=204.0 %, Comment=NSR 10:25 AM HR=75 bpm, YJDN=990/82 mmhg, MwH5=784.0 %, Comment=NSR 10: AM Time: : Versed 1 mg Intravenous Given by Malu Padilla RN [facility] 10: AM Time: 10: Fentanyl 50 mcg Intravenous Given by Malu Padilla RN [facility] 10:30 AM Pressure channel 1 zeroed. 10:30 AM HR=75 bpm, YUXQ=831/77 mmhg, DiY7=596.0 %, Comment=NSR 10: AM Time out performed according to hospital policy [facility] 10:31 AM ASA Class CLASS II- Mild systemic disease (i.e. well-controlled diabetes, hypertension, asthma, cigarette smoking) jcallan 10:32 AM Time: 10:32 20 ml Lidocaine 2% to right groin Subcutaneous Given by Ammon Hagen MD [facility] 10[facility]34 AM Micro-Introducer Kit utilized for sheath placement jcallihan 10:34 AM Time: 10:19LOC: 4 = Oriented but drowsy jcallihan 10:34 AM Time: 10:19 Patient comfortable and pain free: Yes jcallihan 10:35 AM HR=76 bpm, JMFS=679/80 mmhg, SpO2=98.0 %, Comment=NSR 10:36 AM Access obtained by percutaneous puncture. 6Fr 10cm Terumo [place] sheath placed in right Femoral artery. [id number] jcallihan 10:36 AM 0.035 145cm Navilyst 3mmJ wire [id number] jcallihan 10:36 AM 5Fr FR 4 catheter inserted over the wire [facility] jcallihan 10:37 AM wire removed jcallihan 10:38 AM RCA angiography performed in multiple views. jcallihan 10:38 AM Catheter removed jcallan 10:38 AM 5Fr FL 4 catheter inserted over the wire [facility] jcallihan 10:39 AM Recorded Pressure: Ao, HR=74, Condition=Condition 1 (Aorta) Ao 127/68/90 10:39 AM LCA angiography performed in multiple views. jcallihan 10:40 AM Recorded Pressure: Ao, HR=74, Condition=Condition 1 (Aorta) Ao 104/66/83 10:40 AM HR=76 bpm, BCFP=676/78 mmhg, SpO2=96.0 %, Comment=NSR 10:42 AM Catheter removed jcallihan 10:43 AM 5Fr Pigtail catheter inserted over the wire [facility] jcallan 10:44 AM Catheter selectively placed in left ventricle jcallihan 10:44 AM no injection, pressures obtained jcallihan 10:44 AM Recorded Pressure: LV, HR=80, Condition=Condition 1 (Left Ventricle) LV 141/18/24 10:45 AM Recorded Pressure: LV, Ao, HR=83, Condition=Condition 1 (Left Ventricle) LV 127/46/37, (Aorta) Ao 131/73/100 10:45 AM Catheter removed jcallihan 10:45 AM HR=81 bpm, IVNC=993/86 mmhg, SpO2=97.0 %, Comment=NSR 10:49 AM Time: 10:34 Patient comfortable and pain free: Yes jcallihan 10:49 AM Time: 10:34LOC: 4 = Oriented but drowsy jcallihan 10:50 AM HR=83 bpm, FFUB=211/83 mmhg, UyV0=868.0 %, Comment=NSR 10:51 AM Procedure completed at 10:51 jcallihan 10:51 AM Sign out completed: Radiation Dose 490.71 mGy Fluoro Time: 2.1 Isovue 370 - 200ml contrast 64 ml given by Ammon Hagen MD. Complications: NoneCardiac Rehab Consult needed: NoConfirmed administered medications: Yes jcallihan 10:51 AM Isovue 370 - 200ml,1 Bottle(s) used. jcallihan 10:52 AM Estimated Blood Loss: minimal jcallihan 10:52 AM Post ECG NSR jcallihan 10:52 AM Post Blood Pressure 143/83 jcallihan 10:52 AM Information taught Cardiac Cath and Mynx jcallihan 10:52 AM Education needs Procedure, Plan of Care, and Responsibilities of Patient in Care jcallihan 10:52 AM Learning barriers :None jcallihan 10:52 AM Education Methods Verbal jcallihan 10:52 AM Education evaluation Able to repeat information jcallihan 10:52 AM Site status No bleeding/hematoma - Rt Groin as reported by Mana Harry RT (R) at 10:52 jcallihan 10:53 AM Plavix, Effient or Brilinta given No jcallihan 10:53 AM Delay to floor No jcallihan 10:53 AM Family placed in consult room. jcallihan 10:53 AM Complications: None jcallihan 10:53 AM Fluoro Time: 2.1 jcallihan 10:53 AM Isovue 370 - 200ml contrast 64 ml given by Xiao. jcallihan 10:53 AM Radiation Dose 490.71 mGy jcallihan 10:54 AM Arterial sheath pulled, Mynx closure device used and was Successful [id number] S/N. jcallihan 10:55 AM Opsite applied jcallihan 10:59 AM Coronary Dominance: right jcallihan 11:00 AM Lesion found in Proximal LAD. Pre Stenosis: 70 Pre JEMAL Flow: jcallihan 11:00 AM Lesion found in Mid RCA. Pre Stenosis: 99 Pre JEMAL Flow: jcallihan 11:01 AM Report given to toy SHAW Pt taken to 3B Room #44. 11:01 jcallihan 11:01 AM Lesion found in Distal RCA. Pre Stenosis: 100 Pre JEMAL Flow: jcallihan 11:02 AM Lesion found in distal LMCA. Pre Stenosis: 60 Pre JEMAL Flow: jcallihan 11:02 AM Lesion found in Mid LAD. Pre Stenosis: 60 Pre JEMAL Flow: jcallihan 11:02 AM Lesion found in Proximal Circumflex. Pre Stenosis: 100 Pre JEMAL Flow: jcallihan 11:02 AM Lesion found in 2nd Marginal. Pre Stenosis: 99 Pre JEMAL Flow: jcallihan 11:02 AM Left Main Coronary Artery with 60% stenosis jcallihan 11:02 AM Proximal Left Anterior Descending Coronary Artery with 70% stenosis. If graft is supplying this territory, 0 % stenosis. jcallihan 11:02 AM Circumflex, Obtuse Marginal, Left Posterior Descending, and Left Posterolateral Coronary Arteries with 100 % stenosis. If graft is supplying this area, 0 % stenosis jcallihan 11:03 AM Right Coronary, Right Posterior Descending Arteries with Right Posterolateral and Acute Marginal branches with 100 % stenosis. If graft is supplying this area, 0 % stenosis jcallihan 11:03 AM Conversation between Interventionalist and CT Surgeon. jcallihan 11:04 AM Time: 10:49LOC: 5 = Fully awake and oriented or at pre-proc level jcallihan 11:04 AM Time: 10:49 Patient comfortable and pain free: Yes jcallihan 11:[address] Kimble paged jcallihan 11:07 AM Patient out of room: 11:07 jcallihan Complications Complication None Hemodynamics Pressures Site Systolic/A Wave Diastolic/V Wave Mean AO 127 68 90 AO 104 66 83 LV 141 18 24 LV 127 46 37 AO 131 73 100 Post Procedure Information Blood Pressure: 143/83 mmHg Rhythm: NSR Post procedural instructions were given Surgery consult for CABG Closure Device Time Device Success/Fail 02/12/2018 10:55:00 AM MynxGrip Successful Site Checks Time Location Status Staff Sheath In? Note 10:52 AM Rt Groin No bleeding/hematoma Mana Harry RT (R) Pulses Time Site Pre-Procedure Post-Procedure Note 02/12/2018 9:15:00 AM Bilateral DP 2+ 02/12/2018 9:15:00 AM Bilateral radial 2+ Updated by Ulisses Rutledge RN on 02/12/2018 11:08:14 AM electronically signed on 02/12/2018 11:09:24 AM with status of Final
[2018-02-12] MEDS: Nicotine 21 MG PATCH.TD24 TD SCH (11:40)
[2018-02-12] MEDS: Lisinopril-HCTZ 20-12.5mg TABLET PO SCH (11:40)
[2018-02-12] MEDS: Metoprolol XL (24 HR) Succ 25 MG TAB.ER.24H PO SCH (11:40)
[2018-02-12] MEDS: predniSONE 20 MG TABLET PO SCH (11:40)
[2018-02-12] MEDS: Isosorbide MONOnitrate (24 HR) 30 MG TAB.ER.24H PO SCH (11:40)
[2018-02-12] MEDS: Cholestyramine 4 GM POWD.PACK PO SCH ×2 (11:41→16:53)
[2018-02-12] MEDS: Aspirin Enteric Coated 81 MG Tablet PO SCH (11:41)
--- NOTE | 2018-02-12 11:51 | Internal Med Progress Note ---
Date of Encounter: 02/12/18 Time of Encounter: 11:46 - Assessment and plan (1) Chest pain Current Visit: Yes Status: Acute Assessment and plan: presented with central chest pressure/tightness that radiates to bilateral shoulders with associated shortness of breath. Serial troponins negative. EKG without acute ST changes. Stress test with moderate to severe intensity fixed perfusion defect representing infarct, EF 40% and LV is dilated. TTE with EF 55% , indeterminate diastolic dysfunction, mildly dilated left atrium. 02/12/18 LHC reportedly with multiple blockages not amendable to stenting and CTS consult recommended for possible CABG. Cont home ASA. Isosorbide, BB, statin added. Cardiology following Qualifiers: Chest pain type: unspecified Qualified Code(s): R07.9 - Chest pain, unspecified (2) COPD exacerbation Current Visit: Yes Status: Acute Assessment and plan: Suspected with smoking history, SOB and wheezing on exam. No increase in sputum production, afebrile. No indication for ATB at this time. Steroid burst , bronchodilators. (3) HTN (hypertension) Current Visit: Yes Status: Acute Assessment and plan: per hx. BP controlled. Continue home BP medication. Monitor BP and titrate PRN Qualifiers: Hypertension type: essential hypertension Qualified Code(s): I10 - Essential (primary) hypertension (4) HLD (hyperlipidemia) Current Visit: Yes Status: Acute Assessment and plan: per hx. No statin due to myalgias. Cont home medications Qualifiers: Hyperlipidemia type: unspecified Qualified Code(s): E78.5 - Hyperlipidemia , unspecified (5) Tobacco abuse Current Visit: Yes Status: Chronic Assessment and plan: History heavy tobacco use. Smokes 2 packs per day for 40 years. Cessation advised. NRT (6) Lung nodule Current Visit: Yes Status: Acute Assessment and plan: Chest CTA with a few solid nodules in the right upper lobe measuring up to 0.3 cm. Likely secondary to an infectious or inflammatory process. Recommend repeat chest CT in 12 months (7) DVT prophylaxis Current Visit: Yes Status: Acute Assessment and plan: Heparin - Time Spent With Patient Total time spent is greater than 50% in coordination of care (as documented) at patient's floor/unit and/or counseling patient: - Subjective Interval history: Seen and examined at bedside; he just returned from left heart catheterization. Has a little tenderness at right femoral site and is worried about The results otherwise he has no complaints. No active chest pain or shortness of breath. - Constitutional Vitals: Temp Pulse Resp BP Pulse Ox 98.2 F 79 14 143/80 96 02/12/18 11:35 02/12/18 11:35 02/12/18 11:35 02/12/18 11:35 02/12/18 11:35 General appearance: Present: A&O X 3, no acute distress - Head Head exam: Present: atraumatic, normocephalic - Eye Eye exam: Present: PERRL, conjuntiva pink, sclera anicteric Pupils: Present: PERRL - Neck Neck exam general surgery: Present: supple, trachea midline. Absent: lymphadenopathy - Respiratory Respiratory exam: Present: CTAB. Absent: accessory muscle use, rales, rhonchi, wheezes - Cardiovascular Cardiovascular exam: Present: RRR, +S1, +S2. Absent: diastolic murmur, gallop, rubs, systolic murmur - GI/Abdominal GI/Abdominal exam: Present: normal bowel sounds, soft, no peritoneal signs. Absent: distended, tenderness - Extremities Exam Extremities exam: Present: warm, radial pulses palpable and symmetrical. Absent : calf tenderness, cyanotic, pedal edema - Neurological Exam Neurological exam: Present: CN II-XII intact, oriented X3, no focal deficits. Absent: pronater drift, facial droop, speech deficit - Skin Skin exam: Present: dry, intact Internal Medicine: Result - Labs CBC & Chem 7: 02/11/18 06:27 02/11/18 06:27 - ABG Interpretation ABG results: PT/INR, D-dimer PT 10.8 Seconds (9.4-12.1) 02/09/18 20:32 - Impressions Impressions Echocardiogram Limited Views 02/11/18 07:00 Impressions: Findings: ADDENDUM: 02/11/18 [id number] Impressions: LVEF 55%. Technically adequate exam. Normal sinus rhythm. Indeterminate diastolic function. Mildly dilated left atrium. Trileaflet aortic valve with normal function. Mildly sclerotic mitral valve leaflets. Trace mitral regurgitation. Mild tricuspid regurgitation. Left Ventricular Wall Motion: Rest Echo Findings The apex, mid inferior, apical anterior and mid inferior lateral brown were not visualized. All other wall segments showed normal motion. Findings: Study Quality * Technically adequate exam. ECG Findings * Normal sinus rhythm. Left Ventricle * LVEF 55%. * Indeterminate diastolic function. * There is no LV thrombus. Left Atrium * Mildly dilated left atrium. Right Atrium * Normal right atrial size. Interatrial Septum * No evidence of PFO by color Doppler. Aortic Valve * Trileaflet aortic valve. * Trileaflet aortic valve with normal function. Mitral Valve * Normal mitral valve structure. * Mildly calcified mitral valve leaflets. * Mildly sclerotic mitral valve leaflets. * Normal mitral valve function. * Trace mitral regurgitation. Device lead * A device lead was visualized in the right atrium and right ventricle. Tricuspid Valve * Normal tricuspid valve structure and function. * Mild tricuspid regurgitation. Pulmonic Valve * Pulmonic valve not well visualized. Aorta * Normally sized aortic root. Pericardium * The pericardium appears normal. Consult Discharge Plan - Plan Referrals: Anya Bullard CNP [Primary Care Provider] -
--- NOTE | 2018-02-12 16:37 | Cardiothoracic Consult Note ---
Date of Encounter: 02/12/18 Time of Encounter: 16:28 Assessment and Plan (1) CAD (coronary artery disease) Current Visit: Yes Status: Acute The patient is a 57-year-old hypertensive man with hypercholesterolemia and a history of premature CAD. The patient has experienced progressive substernal chest heaviness, upper pectoral muscle "soreness", shortness of breath, and diaphoresis for the last 2 weeks. The symptoms occur at rest and have not occurred with activity. While the patient does not have symptoms on a daily basis, he states that the symptoms have become more frequent and severe. At times the symptoms will last 2 hours before resolving. He was admitted to [facility] on 02/09/2018 for cardiac workup. The nuclear stress test revealed no evidence of ischemia, but evidence of a prior infarct involving the inferolateral brown. The transthoracic echocardiogram revealed an LVEF 55% with no wall motion abnormalities. Cardiac catheterization revealed severe 3 vessel CAD. In particular, the patient has a 60% distal left main lesion, a 70% proximal LAD lesion, a 60% mid LAD lesion, a completely occluded proximal LCx which fills distally via left to left collaterals, a 99% proximal OM 2 lesion, a 99% mid RCA lesion, and a completely occluded distal RCA. He has been recommended for urgent CABG. I concur with this recommendation. The STS risk calculator shows an operative mortality risk 0.55% , deep sternal wound infection risk 0.29%, permanent stroke risk 0.50%, renal failure risk 1.56%, and reoperation risk 3.47%. The patient understands the procedure, benefits, alternatives, and risks as outlined above. He gives his informed consent and Dr. David Saleem will perform CABG in the morning. The assessment and plan as outlined above was discussed with the patient and/or family members who expressed understanding and agreement. All questions were answered. Qualifiers: Coronary Disease-Associated Artery/Lesion type: [place] artery [place] vs. transplanted heart: [place] heart Associated angina: with unstable angina Qualified Code(s): I25.110 - Atherosclerotic heart disease of [place] coronary artery with unstable angina pectoris - History of Present Illness Consult date: 02/12/18 Requesting physician: Ammon Hagen Consult reason: CABG evaluation Chief complaint: Substernal chest heaviness, shortness of breath History of present illness: Mr. Islas is a 57 year old hypertensive man with hypercholesterolemia and a strong family history of premature CAD. The patient was admitted to [facility] on 02/09/2018 after complaining of a 2 week history of substernal chest heaviness and shortness of breath. His cardiac history; however, dates back at least 20 years ago when he had severe substernal chest pain radiating to his shoulders and down his arms and associated shortness of breath, dyspnea on exertion, and diaphoresis while painting a house. He rested for several minutes after the onset of the symptoms and return to work without seeking medical attention. He did well until 2 years ago when he had a similar episode, again while painting. He did not seek medical attention after this episode either. During the last 2 weeks, the patient has had progressive substernal chest heaviness and pectoral muscle "soreness" after work. 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 At night when he is resting though, he has severe chest heaviness and upper pectoral muscle "soreness". This is associated with shortness of breath and mild diaphoresis. At times the symptoms last for as long as 2 hours before resolving spontaneously. His brought him to the emergency department last week and he was admitted for further cardiac workup. The patient underwent a nuclear stress test which revealed an LVEF 48% with a moderate to severe fixed defect involving the inferolateral wall. No evidence of ischemia was noted. He underwent a transthoracic echocardiogram which revealed an LVEF 55% with indeterminate diastolic dysfunction. Given his presenting symptoms and cardiac risk factors; however, he was recommended for cardiac catheterization. The study performed today revealed severe 3 vessel CAD. In particular, the patient had a 60% distal left main lesion, a 70% proximal LAD lesion, a 60% mid LAD lesion, a completely occluded proximal LCx which fills distally via left to left collaterals, a 99% proximal OM2 lesion, a 99% mid RCA lesion, and a completely occluded distal RCA. The RCA appears to be a small, nondominant vessel. The patient has been recommended for urgent CABG. Past Med Surg Social Fam HX - Past Medical History Medical history: COPD, coronary artery disease, hyperlipidemia, hypertension, other (Chronic bronchitis) Additional medical history: Chronic Bronchitis Psychiatric history: no psych history - Past Surgical History Surgical History: no surgical history - Social History Smoking Status: Current every day smoker Packs per day: 1.5-2 PPD x 40YRS Smokeless Tobacco Status: No Alcohol use: none Drug use: none Occupational status: employed Current living situation: Home - Independent Activity Level: Independent ambulation Recent Out of Country Travel Within the Last 8 Weeks: No Exposure or Possible Exposure to Illness During Travel: No Medications and Allergies Aspirin [Lo-Dose Aspirin EC] 81 mg PO DAILY 02/09/18 [History] Cholestyramine 4 gm PO BIDAC 02/09/18 [History] Ibuprofen [Ibu] 400 mg PO Q6H PRN 02/09/18 [History] Lisinopril [Zestril] 20 mg PO QPM 02/09/18 [History] Lisinopril-HCTZ 20-12.5 [Prinzide 20-12.5] 1 tab PO QAM 02/09/18 [History] 3 Allergy/AdvReac Type Severity Reaction Status Date / Time No Known Allergies Allergy Verified 02/09/18 19:56 All Systems Review: The remainder of the systems were reviewed and are negative Physical Examination Vital Signs, Last 4 Hours Temp Pulse Resp BP Pulse Ox 02/12/18 15:05 98.1 F 83 15 112/62 95 02/12/18 14:02 65 18 115/66 96 02/12/18 13:05 63 15 110/66 95 02/12/18 12:35 66 15 120/73 94 General: Conversant, No Apparent Distress HEENT: Atraumatic, Normocephaly, Trachea midline Neck: No JVD, Normal carotid pulses Cardiac: Reg Rate and Rhythm, Normal S1 and S2, No Murmur Lungs: Normal Breath Sounds, No Wheeze, Rales, Rhonchi Neuro: Alert and responsive, No focal deficits noted, Motor nerves intact, Sensory nerves intact Vascular: Normal capillary refill Abdomen: Soft, Non-tender Skin: No rashes noted on visualized skin Musculoskeletal: No Chest Wall Tenderness Extremities: No Clubbing, No Cyanosis, No Edema, Normal Pulses Results 02/11/18 06:27 02/11/18 06:27 - Imaging Chest Xray: image reviewed (Normal cardiac size. No active pulmonary disease.) Consult Discharge Plan - Plan Referrals: Anya Bullard CNP [Primary Care Provider] -
--- NOTE | 2018-02-12 16:40 | Electrocardiograph Report ---
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
[2018-02-12] MEDS ORDERED: CeFAZolin Syr 2,000MG/20 ML 2,000 MG/20 ML SYRINGE IVPB ONE (16:44)
[2018-02-12] MEDS: Lisinopril 20 MG TABLET PO SCH (16:53)
--- NOTE | 2018-02-12 17:15 | Electrocardiograph Report ---
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
[2018-02-12] MEDS ORDERED: Insulin Human Regular 100 UNIT in 0.9 % Sodium Chloride 100 ML IV PRN (19:13)
[2018-02-12] MEDS ORDERED: Norepinephrine 4 MG in D5% in Water 250 ML IVC PRN (19:13)
[2018-02-12] MEDS ORDERED: Dextrose 50 % in Water (Vial) 30 ML, Sodium Bicarbonate 20 MEQ, Potassium Chloride 15 M... TH ONE ×2 (19:13→19:30)
[2018-02-12] MEDS: Chlorhexidine Rinse 15 ML MOUTHWASH MM SCH (22:31)
[2018-02-13] MEDS ORDERED: Heparin 15,000 UNIT in 0.9 % Sodium Chloride 500 ML IV SCH (02:00)
[2018-02-13] MEDS: Ipratropium/Albuterol Neb 3 ML IH SCH ×4 (03:40→20:05)
[2018-02-13] MEDS ORDERED: Dextrose 50 % in Water (Vial) 30 ML, Sodium Bicarbonate 20 MEQ, Potassium Chloride 15 M... TH ONE (06:00)
[2018-02-13] MEDS: Aspirin Enteric Coated 81 MG Tablet PO SCH (06:28)
[2018-02-13] MEDS: *HR* Heparin 5,000 UNIT/ML VIAL SQ SCH (06:28)
[2018-02-13] MEDS: Chlorhexidine Rinse 15 ML MOUTHWASH MM SCH ×2 (06:28→22:21)
[2018-02-13] MEDS ORDERED: Verapamil 5 MG/2 ML VIAL ONE (07:16)
[2018-02-13] MEDS ORDERED: *HR* Rocuronium Bromide 50 MG/5 ML VIAL ONE ×2 (07:19→11:00)
[2018-02-13] MEDS ORDERED: *HR* PHENYLEPHRINE 1,000 MCG/10 ML SYRINGE IVP ONE (07:19)
[2018-02-13] MEDS ORDERED: *HR* Etomidate 20 MG/10 ML AMPUL IVP ONE (07:20)
[2018-02-13] MEDS ORDERED: Famotidine 20 MG/2 ML VIAL ONE (07:20)
[2018-02-13] MEDS ORDERED: Protamine Sulfate 250 MG/25 ML VIAL IVP ONE (07:23)
[2018-02-13] MEDS ORDERED: Tranexamic Acid 1,000 MG/10 ML VIAL ONE ×2 (07:23→11:02)
[2018-02-13] MEDS ORDERED: *HR* Midazolam HCl 5 MG/5 ML VIAL IVP ONE (07:26)
[2018-02-13] MEDS ORDERED: *HR* FentaNYL (PF) 1,000 MCG/20 ML VIAL ONE (07:26)
[2018-02-13] MEDS ORDERED: NiCARdipine 2.5 MG/10 ML Syringe IVPB ONE (07:35)
[2018-02-13] MEDS ORDERED: Nitroglycerin 25 MG/250 ML INFUS..BTL IVC ONE ×2 (07:35→11:04)
--- NOTE | 2018-02-13 07:47 | Anesthesia Evaluation PreOp ---
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: Denies Any Significant HX Other Medical History: Denies Any Significant HX Anesthesia History: Past Anesthesia (denies PSH) Alcohol Use: none Drug use: none Medications and Allergies Aspirin [Lo-Dose Aspirin EC] 81 mg PO DAILY 02/09/18 [History] Cholestyramine 4 gm PO BIDAC 02/09/18 [History] Ibuprofen [Ibu] 400 mg PO Q6H PRN 02/09/18 [History] Lisinopril [Zestril] 20 mg PO QPM 02/09/18 [History] Lisinopril-HCTZ 20-12.5 [Prinzide 20-12.5] 1 tab PO QAM 02/09/18 [History] 3 Allergy/AdvReac Type Severity Reaction Status Date / Time No Known Allergies Allergy Verified 02/09/18 19:56 - Meds/Allergy Pre-op Review Medications Reviewed: Yes Allergies Reviewed: Yes Beta Blockers on Current Med List: Yes If Beta Blockers taken, Date/Time (Last Dose taken): today 0630 Anesthesia Results - Labs 02/11/18 06:27 02/11/18 06:27 - Imaging EKG: report reviewed (SINUS RHYTHM INFERIOR MYOCARDIAL INFARCTION, PROBABLY OLD IVCD) Additional studies: echo: Impressions: LVEF 55%. Technically adequate exam. Normal sinus rhythm. Indeterminate diastolic function. Mildly dilated left atrium. Trileaflet aortic valve with normal function. Mildly sclerotic mitral valve leaflets. Trace mitral regurgitation. Mild tricuspid regurgitation. stress test: Impression: No perfusion evidence for ischemia. Moderate-severe intensity fixed perfusion defect involving the basal to mid inferolateral wall associated with abnormal wall motion. Findings represent infarct. Pharmacologic stress ECG is negative for ischemia at level of heart rate achieved. No appreciable change from baseline ECG. Gated EF = 48%. LV is dilated. cath: Cardiac catheterization revealed severe 3 vessel CAD. In particular, the patient has a 60% distal left main lesion, a 70% proximal LAD lesion, a 60% mid LAD lesion, a completely occluded proximal LCx which fills distally via left to left collaterals, a 99% proximal OM 2 lesion, a 99% mid RCA lesion, and a completely occluded distal RCA. Anesthesia Exam Selected Entries 02/13/18 02:56 Temperature 98.1 F Pulse Rate 66 Respiratory Rate 16 Blood Pressure 133/71 O2 Sat by Pulse Oximetry 97 Oxygen Delivery Method Room Air Weight: 84kg NPO (# of Hours): 8 - HEENT Pupil (Motor): EOMI Mallampati: II Teeth: Edentulous Oral Opening: Greater than 3 - DRY CHAIN OFFBEARER LOC: Oriented DRY CHAIN OFFBEARER Motor: Normal RUE, Normal LUE, Normal RLE, Normal LLE, Normal Face DRY CHAIN OFFBEARER Sensory: Normal: RUE, LUE, RLE, LLE, Face - Cardiac Rhythm: Regular Murmur: None - Pulmonary Breath Sounds: bilateral Clear Respiratory Effort: Symmetrical
[2018-02-13 08:09] LABS: ABG Base Excess -2 mEq/L (-2 to 3); ABG Chloride 110 mEq/L (98-107); ABG Glucose 85 mg/dL (60-95); ABG HCO3 23 mEq/L (21-27); ABG Ionized Calcium 1.13 mmol/L (1.15-1.35); ABG Oxygen Saturation 100 % (95-98); ABG PCO2 40 mmHg (35-45); ABG PH 7.38 pH Units (7.32-7.45); ABG PO2 202 mmHg (85-104); ABG TCO2 25 mEq/L (20-26)
--- NOTE | 2018-02-13 08:14 | Event Note ---
Date of Encounter: 02/13/18 Time of Encounter: 08:12 Patient was taken for CABG at 0710 before being seen/examined. Hospitalist service signing off and patient to be transferred to [facility] as primary service.
[2018-02-13 08:28] LABS: Hematocrit 37.3 % (37.5-50.1); Hemoglobin 12.9 g/dL (12.9-16.9); Mean Corpuscular HGB Conc 34.6 g/dL (31.6-35.5); Mean Corpuscular Hemoglobin 29.5 pg (28.0-33.3); Mean Corpuscular Volume 85.4 fL (83.0-100.0); Mean Platelet Volume 10.2 fL (9.4-12.4); Platelet Count 280 K/mcL (140-400); Red Blood Count 4.37 M/mcL (4.19-5.50); Red Cell Distribution Width 13.2 % (11.5-14.5)
[2018-02-13 09:22] LABS: ABG Base Excess -2 mEq/L (-2 to 3); ABG Chloride 106 mEq/L (98-107); ABG Glucose 115 mg/dL (60-95); ABG HCO3 24 mEq/L (21-27); ABG Ionized Calcium 1.14 mmol/L (1.15-1.35); ABG Oxygen Saturation 97 % (95-98); ABG PCO2 45 mmHg (35-45); ABG PH 7.33 pH Units (7.32-7.45); ABG PO2 101 mmHg (85-104); ABG TCO2 25 mEq/L (20-26)
--- NOTE | 2018-02-13 09:23 | Anesthesia Procedures ---
Date of Encounter: 02/13/18 Time of Encounter: 07:55 Procedures: Anesthesia - Arterial Line Consent obtained: written consent Time out performed: Yes Sedation: Versed (mg): 2 Sedation: Fentanyl (mcg): 100 Supplemental Oxygen via Nasal Cannula (L/min): 2 Local Anesthetic: Lidocaine 1% Amount of Anesthetic used (mls): 1 Size (Gauge): 20 Length (inches): 5 Technique Used: sterile prep, guide wire technique, direct puncture technique Post-Procedure: line taped into place, dry sterile dressing placed Patient tolerated procedure: well, no complications Complications: none Site: Radial L - Central Line Placement Right IJ Consent obtained: written consent Time out performed: Yes Patient placed on monitor/pulse ox: Yes prep: mask, gown, gloves Central line prep: Chlorhexidine scrub Ultrasound used for placement: Yes Technique: Seldinger Lumen Inserted: Introducer Post procedure: sutured in place, good blood return, all ports aspirated, flushed, capped, sterile dressing applied Patient tolerated procedure: well, no complications Complications: none Comments: introducer placed easily, swan placed without arrythmia and wedge approx 58cm
[2018-02-13 10:04] LABS: ABG Base Excess 1 mEq/L (-2 to 3); ABG Chloride 101 mEq/L (98-107); ABG Glucose 256 mg/dL (60-95); ABG HCO3 25 mEq/L (21-27); ABG Ionized Calcium 0.87 mmol/L (1.15-1.35); ABG PCO2 36 mmHg (35-45); ABG PH 7.45 pH Units (7.32-7.45); ABG PO2 > 630 mmHg (85-104); ABG TCO2 26 mEq/L (20-26)
[2018-02-13 10:29] LABS: ABG Base Excess 0 mEq/L (-2 to 3); ABG Chloride 100 mEq/L (98-107); ABG Glucose 182 mg/dL (60-95); ABG HCO3 25 mEq/L (21-27); ABG Ionized Calcium 0.97 mmol/L (1.15-1.35); ABG Oxygen Saturation 100 % (95-98); ABG PCO2 39 mmHg (35-45); ABG PH 7.41 pH Units (7.32-7.45); ABG PO2 431 mmHg (85-104); ABG TCO2 26 mEq/L (20-26)
[2018-02-13 10:55] LABS: ABG Base Excess 1 mEq/L (-2 to 3); ABG Chloride 101 mEq/L (98-107); ABG Glucose 124 mg/dL (60-95); ABG HCO3 26 mEq/L (21-27); ABG Ionized Calcium 1.01 mmol/L (1.15-1.35); ABG Oxygen Saturation 100 % (95-98); ABG PCO2 43 mmHg (35-45); ABG PH 7.39 pH Units (7.32-7.45); ABG PO2 502 mmHg (85-104); ABG TCO2 27 mEq/L (20-26)
[2018-02-13 11:26] LABS: ABG Base Excess -2 mEq/L (-2 to 3); ABG Chloride 105 mEq/L (98-107); ABG Glucose 90 mg/dL (60-95); ABG HCO3 23 mEq/L (21-27); ABG Ionized Calcium 1.33 mmol/L (1.15-1.35); ABG Oxygen Saturation 94 % (95-98); ABG PCO2 43 mmHg (35-45); ABG PH 7.34 pH Units (7.32-7.45); ABG PO2 75 mmHg (85-104); ABG TCO2 25 mEq/L (20-26)
[2018-02-13] MEDS ORDERED: Insulin Regular, Human 100 UNIT/ML IV PRN (11:51)
[2018-02-13] MEDS ORDERED: Potassium Chloride 40 MEQ/200 ML BAG IVPB PRN (11:51)
[2018-02-13] MEDS ORDERED: Ondansetron 4 MG/2 ML VIAL IVP PRN (11:51)
[2018-02-13] MEDS ORDERED: *HR* Promethazine 25 MG/ML VIAL IVP PRN (11:51)
[2018-02-13] MEDS ORDERED: *HR* Dextrose 50 % in Water (Syg) 50 ML SYRINGE IVP PRN (11:51)
[2018-02-13] MEDS: Norepinephrine 4 MG in D5% in Water 250 ML IVC SCH ×2 (12:00→12:59)
[2018-02-13 12:26] LABS: ABG Base Excess -1 mEq/L (-2 to 3); ABG HCO3 23 mEq/L (21-27); ABG Oxygen Saturation 100 % (95-98); ABG PCO2 36 mmHg (35-45); ABG PH 7.42 pH Units (7.32-7.45); ABG PO2 215 mmHg (85-104); ABG TCO2 24 mEq/L (20-26); Blood Gas Modality VC; Blood Gas PEEP 5 cm H2O; Blood Gas Respiration Rate 16; Blood Gas VT 600 cc
[2018-02-13 12:40] LABS: Basophils % 0.2 %; Eosinophils # 0.1 K/mcL (0.0-0.6); Eosinophils % 0.7 %; Hematocrit 28.4 % (37.5-50.1); Immature Granulocytes % 0.9 % (0-4); Lymphocytes # 3.1 K/mcL (0.6-4.6); Lymphocytes % 18.3 %; Mean Corpuscular HGB Conc 35.2 g/dL (31.6-35.5); Mean Corpuscular Hemoglobin 29.4 pg (28.0-33.3); Mean Corpuscular Volume 83.5 fL (83.0-100.0); Mean Platelet Volume 9.5 fL (9.4-12.4); Monocytes # 0.7 K/mcL (0.0-1.3); Monocytes % 4.1 %; Neutrophils # 12.9 K/mcL (1.6-8.9); Red Cell Distribution Width 13.2 % (11.5-14.5); Segmented Neutrophils % 75.8 %
[2018-02-13] MEDS: 0.9 % Sodium Chloride w KCl 20 MEQ/1,000 ML MLS IVC SCH (12:45)
[2018-02-13 12:46] LABS: INR 1.5; Prothrombin Time 15.9 Seconds (9.4-12.1)
[2018-02-13] MEDS: Dextrose 50 % in Water (Vial) 30 ML, Sodium Bicarbonate 20 MEQ, Lidocaine 1% 5 ML, Insu... TH SCH (12:53)
[2018-02-13] MEDS: Cholestyramine 4 GM POWD.PACK PO SCH ×2 (12:54→20:30)
[2018-02-13] MEDS: Lisinopril-HCTZ 20-12.5mg TABLET PO SCH (12:54)
[2018-02-13] MEDS: Nicotine 21 MG PATCH.TD24 TD SCH (12:54)
[2018-02-13] MEDS: Isosorbide MONOnitrate (24 HR) 30 MG TAB.ER.24H PO SCH (12:54)
[2018-02-13 12:55] LABS: BUN/Creatinine Ratio 16 (6-26); Blood Urea Nitrogen 18 mg/dL (6-20); Calcium 8.3 mg/dL (8.6-10.3); Carbon Dioxide 24 mEq/L (23-29); Chloride 109 mEq/L (98-107); Glucose 78 mg/dL (70-105); Magnesium 2.7 mg/dL (1.6-2.6); Osmolality,Calculated 291 (280-300); Platelet Count 110 K/mcL (140-400); Potassium 3.2 mEq/L (3.5-5.1); Sodium 140 mEq/L (136-145); eGFR For African Americans > 60 (> 60); eGFR For Non-African Americans > 60 (> 60)
[2018-02-13] MEDS: niCARdipine 40 MG/200 ML MLS IVC SCH ×2 (12:55→20:31)
[2018-02-13] MEDS: Insulin Human Regular 100 UNIT in 0.9 % Sodium Chloride 100 ML IVC SCH ×2 (12:55→15:12)
[2018-02-13] MEDS: Nitroglycerin 25 MG/250 ML INFUS..BTL IVC SCH (12:56)
[2018-02-13] MEDS: *HR* FentaNYL (PF) 100 MCG/2 ML VIAL IVP PRN ×4 (13:30→22:21)
[2018-02-13] MEDS: *HR* OxyCODONE/APAP 5/325 TABLET PO PRN (13:30)
--- NOTE | 2018-02-13 13:34 | Operative Note ---
Date of procedure: 02/13/18 Was there an certified physician's assistant present: Yes Electrical Project Manager: Lopez Currie Estimated blood loss (cc): 750 Specimen: none Condition: critical Disposition: ICU Procedure in Detail: Preoperative diagnosis. Coronary artery disease. Postoperative diagnosis. Same. Procedures. Coronary artery bypass grafting 3 with the left internal mammary artery to the LAD and saphenous vein grafts to the main right coronary artery and intermediate branch of the circumflex coronary artery. Surgeon. David Saleem. The patient is a 57-year-old gentleman with a history of smoking up to 2 packs per day who presented with chest pain. Cardiac catheterization revealed triple vessel disease and he was referred for surgery. He was brought to the operating room where he was prepped and draped in standard fashion. The right greater saphenous vein was harvested from the right knee to the right groin using 2 small incisions and the scope. These incisions were subsequently closed with a deep layer of 0 Vicryl and a 2-0 Vicryl subcuticular stitch. Standard median sternotomy was performed. The left internal mammary artery retractor was inserted and the left internal mammary artery was harvested in standard fashion using the Bovie electrocoagulation. The mammary retractor was removed and the standard sternal instructor dramatic arts was inserted. Pericardium was opened in the midline and suspended with 2-0 silk stay sutures. Double pursestring of 200 [place] was placed in the aorta for the aortic cannulation site. A pursestring of 20 [place] was placed in the right atrial appendage for the venous uptake. The patient was heparinized. The aorta was cannulated without difficulty. 2 stage venous uptake cannula was inserted through the right atrial appendage. The patient was placed on cardiopulmonary bypass and cooled to 34.6 degrees. A purse string of 3-0 silk was placed in the aorta and the cardioplegia needle was inserted through here. This was also used as an active and passive aortic vent. The aorta was crossclamped and antegrade cardioplegia was given. Attention was first turned to the right coronary artery. The distal main right coronary artery was dissected free with the Newtok blade and opened with the Newtok blade and the Guzman scissors. This had a lumen of 1-1/2 mm with moderate calcific disease. A standard end-to-side anastomosis was constructed using the saphenous vein and a 7-0 Prolene. Following this, the patient received additional antegrade cardioplegia. Attention was turned to the circumflex system. The intermediate branch was intramyocardial and was the largest branch. It was dissected free with the Newtok blade and opened with the Newtok blade and the Guzman scissors. It had a lumen of 1-1/2 mm and was relatively free of disease. A standard end-to-side anastomosis was constructed using the saphenous vein and a 7-0 Prolene. When this is completed, the patient received a last dose of antegrade cardioplegia. The mammary pedicle was harvested. Tonsil clamp was placed distally and was divided with the Metzenbaum scissors. Distal end was tied off with a 2-0 silk suture. Proximal end was trimmed and brought into the wound. The LAD was also intramyocardial. It was dissected free distally and opened with the Newtok blade and the Guzman scissors. It had a lumen of 1-1/2 mm with mild diffuse disease. A standard end -to-side anastomosis was constructed using the mammary artery and a 7-0 Prolene. When this is completed, the previously placed bulldog clamp was removed and the distal anastomosis was hemostatic. The pedicle was tacked to the surface of the heart using 2 5-0 silk sutures. Cross-clamp was removed and rewarming was begun. Total cross-clamp time was 47 minutes. A side-biting clamp was placed on the aorta and the cardioplegia needle was removed. 2 holes were made in the aorta using the Newtok blade and a 4.0 mm aortic punch. 2 proximal anastomoses were constructed in standard fashion using the saphenous veins and 5-0 Prolene's. When this is completed, the side-biting clamp was removed. Grafts were de-aired using a #25-gauge needle and the previously placed bulldog clamps were removed. Distal anastomoses were inspected and found to be hemostatic. Proximal anastomosis were marked with the marker from a Ray-Eliseo sponge. A pair of atrial and ventricular pacing wires was left. A total of 3 chest tubes were left. A 32 right angle chest tube to the left pleural space. A 32 right angle chest tube to the pericardial well. A 42 mediastinal chest tube. We did place some FloSeal and fibrillar around the distal and proximal anastomoses. The patient was weaned from bypass and decannulated. Pericardium was loosely closed with interrupted silk sutures. Hemostasis was good and the hemodynamics were good. We did place platelet rich and platelet poor plasma on the sternum and tissues above the sternum. Sternum was closed with #7 sternal wires in simple and [id number] fashion. Fascia was run with #1 Vicryl. Subcutaneous tissues with a 2-0 Vicryl. Skin was closed with a 3-0 Vicryl subcuticular stitch. The patient tolerated the procedure well and was returned intensive care unit in satisfactory and stable condition. Total bypass time 91 minutes. Total cross-clamp time 47 minutes. He been cooled to 34.6 degrees.
[2018-02-13] MEDS ORDERED: *HR* FentaNYL (PF) 100 MCG/2 ML VIAL ONE (14:17)
--- NOTE | 2018-02-13 16:13 | Electrocardiograph Report ---
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
[2018-02-13] MEDS: CeFAZolin Pre 2,000 MG/100 ML 2,000 MG/100 ML BAG IVPB SCH (16:31)
[2018-02-13 16:36] LABS: ABG Base Excess -1 mEq/L (-2 to 3); ABG HCO3 24 mEq/L (21-27); ABG Oxygen Saturation 99 % (95-98); ABG PCO2 39 mmHg (35-45); ABG PH 7.39 pH Units (7.32-7.45); ABG PO2 150 mmHg (85-104); ABG TCO2 25 mEq/L (20-26); Blood Gas Modality VC; Blood Gas PEEP 5 cm H2O; Blood Gas Respiration Rate 16; Blood Gas VT 600 cc
[2018-02-13 16:49] LABS: Basophils % 0.3 %; Eosinophils # 0.1 K/mcL (0.0-0.6); Eosinophils % 0.4 %; Hematocrit 30.7 % (37.5-50.1); Hemoglobin 10.8 g/dL (12.9-16.9); Immature Granulocytes % 0.7 % (0-4); Lymphocytes # 2.1 K/mcL (0.6-4.6); Lymphocytes % 14.6 %; Mean Corpuscular HGB Conc 35.2 g/dL (31.6-35.5); Mean Corpuscular Hemoglobin 29.5 pg (28.0-33.3); Mean Corpuscular Volume 83.9 fL (83.0-100.0); Mean Platelet Volume 9.8 fL (9.4-12.4); Monocytes # 1.5 K/mcL (0.0-1.3); Monocytes % 10.3 %; Neutrophils # 10.4 K/mcL (1.6-8.9); Platelet Count 138 K/mcL (140-400); Red Blood Count 3.66 M/mcL (4.19-5.50); Red Cell Distribution Width 13.3 % (11.5-14.5); Segmented Neutrophils % 73.7 %
[2018-02-13 17:02] LABS: BUN/Creatinine Ratio 15 (6-26); Blood Urea Nitrogen 18 mg/dL (6-20); Calcium 8.3 mg/dL (8.6-10.3); Carbon Dioxide 23 mEq/L (23-29); Chloride 110 mEq/L (98-107); Glucose 130 mg/dL (70-105); Osmolality,Calculated 296 (280-300); Potassium 4.4 mEq/L (3.5-5.1); Sodium 141 mEq/L (136-145); eGFR For African Americans > 60 (> 60); eGFR For Non-African Americans > 60 (> 60)
[2018-02-13 18:37] LABS: ABG Base Excess 0 mEq/L (-2 to 3); ABG HCO3 25 mEq/L (21-27); ABG Oxygen Saturation 98 % (95-98); ABG PCO2 43 mmHg (35-45); ABG PH 7.38 pH Units (7.32-7.45); ABG PO2 101 mmHg (85-104); ABG TCO2 27 mEq/L (20-26); Blood Gas Modality CPAP/PS; Blood Gas PEEP 5 cm H2O; Blood Gas Pressure Support 8 cm H2O
[2018-02-13] MEDS: Lisinopril 20 MG TABLET PO SCH (20:31)
[2018-02-14] MEDS: CeFAZolin Pre 2,000 MG/100 ML 2,000 MG/100 ML BAG IVPB SCH (00:15)
[2018-02-14] MEDS: *HR* OxyCODONE/APAP 5/325 TABLET PO PRN ×6 (01:15→20:00)
[2018-02-14] MEDS: 0.9 % Sodium Chloride w KCl 20 MEQ/1,000 ML MLS IVC SCH (02:07)
[2018-02-14] MEDS: *HR* FentaNYL (PF) 100 MCG/2 ML VIAL IVP PRN ×3 (02:07→11:12)
[2018-02-14] MEDS: Ipratropium/Albuterol Neb 3 ML IH SCH ×4 (03:47→20:26)
[2018-02-14] MEDS: Nitroglycerin 25 MG/250 ML INFUS..BTL IVC SCH ×2 (04:32→08:58)
[2018-02-14] MEDS: Dextrose 50 % in Water (Vial) 30 ML, Sodium Bicarbonate 20 MEQ, Lidocaine 1% 5 ML, Insu... TH SCH (04:32)
[2018-02-14] MEDS: niCARdipine 40 MG/200 ML MLS IVC SCH ×2 (04:34→12:11)
[2018-02-14 04:52] LABS: Basophils % 0.2 %; Eosinophils % 0.4 %; Hematocrit 29.6 % (37.5-50.1); Immature Granulocytes % 0.3 % (0-4); Lymphocytes # 1.5 K/mcL (0.6-4.6); Lymphocytes % 14.6 %; Mean Corpuscular HGB Conc 33.8 g/dL (31.6-35.5); Mean Corpuscular Hemoglobin 28.4 pg (28.0-33.3); Mean Corpuscular Volume 84.1 fL (83.0-100.0); Mean Platelet Volume 9.3 fL (9.4-12.4); Monocytes # 1.1 K/mcL (0.0-1.3); Monocytes % 10.7 %; Neutrophils # 7.4 K/mcL (1.6-8.9); Platelet Count 124 K/mcL (140-400); Red Blood Count 3.52 M/mcL (4.19-5.50); Red Cell Distribution Width 13.6 % (11.5-14.5); Segmented Neutrophils % 73.8 %
[2018-02-14 05:05] LABS: INR 1.1
[2018-02-14 05:08] LABS: Activated Partial Thrombo Time 29.2 Seconds (26.0-36.0)
[2018-02-14 05:15] LABS: BUN/Creatinine Ratio 18 (6-26); Blood Urea Nitrogen 22 mg/dL (6-20); Calcium 7.9 mg/dL (8.6-10.3); Carbon Dioxide 20 mEq/L (23-29); Chloride 112 mEq/L (98-107); Glucose 113 mg/dL (70-105); Magnesium 2.2 mg/dL (1.6-2.6); Osmolality,Calculated 294 (280-300); Potassium 4.5 mEq/L (3.5-5.1); Sodium 140 mEq/L (136-145); eGFR For African Americans > 60 (> 60); eGFR For Non-African Americans 60 (> 60)
[2018-02-14] MEDS ORDERED: *HR* Magnesium Sulfate 2 GM/50 ML PIGGYBACK IVPB ONE (07:08)
[2018-02-14] MEDS ORDERED: Tranexamic Acid 1,000 MG/10 ML VIAL IVPB ONE (07:08)
[2018-02-14] MEDS ORDERED: Calcium Gluconate 1,000 MG/10 ML VIAL IVPB ONE (07:08)
[2018-02-14] MEDS ORDERED: Lidocaine 2% Syringe 100 MG/5 ML IV ONE (07:08)
[2018-02-14] MEDS ORDERED: Albumin Human 25% 25 GM/100 ML IV.SOLN IV ONE (07:08)
[2018-02-14] MEDS ORDERED: Heparin 1,000 UNITS/500 mL IV.SOLN IVC ONE (07:08)
[2018-02-14] MEDS ORDERED: Mannitol 25% vial 12.5 GM/50 ML VIAL IVP ONE (07:08)
[2018-02-14] MEDS ORDERED: *HR* Phenylephrine 10 MG/ML VIAL IVC ONE (07:08)
[2018-02-14] MEDS ORDERED: Sodium Bicarbonate 50 MEQ/50 ML VIAL IVC ONE (07:08)
[2018-02-14] MEDS: Cholestyramine 4 GM POWD.PACK PO SCH ×2 (07:28→16:19)
--- NOTE | 2018-02-14 08:38 | Cardiothoracic Progress Note ---
Date of Encounter: 02/14/18 Time of Encounter: 08:35 - Assessment and plan (1) CAD (coronary artery disease) Current Visit: Yes Status: Acute The assessment and plan as outlined above was discussed with the patient and/or family members who expressed understanding and agreement. All questions were answered. The patient is doing well. We will discontinue his IV fluids, [place] catheter and arterial line. We will leave his Jeffries catheter until the chest tubes are removed per the patient's request. We will attempt to transfer the patient to the floor if a bed is available. Qualifiers: Coronary Disease-Associated Artery/Lesion type: [place] artery [place] vs. transplanted heart: [place] heart Associated angina: with unstable angina Qualified Code(s): I25.110 - Atherosclerotic heart disease of [place] coronary artery with unstable angina pectoris - Subjective Interval history: The patient has mild postoperative pain. Vital Signs, Last 4 Hours Temp Pulse Resp BP Pulse Ox 02/14/18 07:00 90 20 98/48 95 02/14/18 06:00 99.6 F 94 16 104/51 96 02/14/18 05:00 99.6 F 89 20 101/54 96 [place]gyen Flow Rate Oxygen Flow Rate (LPM) 2 Clinical Data, last 8 Hours Output, Chest Tube Drainage 15 Amount [Mediastinal #3] Output, Chest Tube Drainage 10 Amount [Mediastinal #3] Output, Chest Tube Drainage 0 Amount [Mediastinal #3] Output, Chest Tube Drainage 10 Amount [Mediastinal #3] Output, Chest Tube Drainage 0 Amount [Mediastinal #3] Output, Chest Tube Drainage 15 Amount [Mediastinal #3] Output, Chest Tube Drainage 20 Amount [Mediastinal #2] Output, Chest Tube Drainage 20 Amount [Mediastinal #2] Output, Chest Tube Drainage 4 Amount [Mediastinal #2] Output, Chest Tube Drainage 0 Amount [Mediastinal #2] Output, Chest Tube Drainage 5 Amount [Mediastinal #2] Output, Chest Tube Drainage 20 Amount [Mediastinal #2] Output, Chest Tube Drainage 10 Amount [Mediastinal #1] Output, Chest Tube Drainage 20 Amount [Mediastinal #1] Output, Chest Tube Drainage 6 Amount [Mediastinal #1] Output, Chest Tube Drainage 50 Amount [Mediastinal #1] Output, Chest Tube Drainage 40 Amount [Mediastinal #1] Output, Chest Tube Drainage 20 Amount [Mediastinal #1] Lungs are clear to percussion and auscultation. Heart is in a normal sinus rhythm. All incisions are healing well without signs of infection and the sternum is stable. Chest tube drainage is minimal and there is no air leak. Chest x-ray looks good. - Labs 02/14/18 04:40 02/14/18 04:40 Lab Results, Last 24 hours 02/14/18 02/14/18 02/14/18 04:40 04:40 04:40 WBC 10.0 Hgb 10.0 L Hct 29.6 L Plt Count 124 L INR 1.1 APTT 29.2 Sodium 140 Potassium 4.5 Chloride 112 H Carbon Dioxide 20 L BUN 22 H Creatinine 1.25 Glucose 113 H Calcium 7.9 L Magnesium 2.2 - VTE Documentation of Mechanical Device: Graduated compression elastic hosiery Consult Discharge Plan - Plan Referrals: Anya Bullard CNP [Primary Care Provider] -
[2018-02-14] MEDS: Nicotine 21 MG PATCH.TD24 TD SCH (09:05)
[2018-02-14] MEDS: Aspirin Enteric Coated 81 MG Tablet PO SCH (09:05)
[2018-02-14] MEDS: Chlorhexidine Rinse 15 ML MOUTHWASH MM SCH ×2 (09:05→19:58)
[2018-02-14] MEDS: Isosorbide MONOnitrate (24 HR) 30 MG TAB.ER.24H PO SCH (09:13)
[2018-02-14] MEDS: Lisinopril-HCTZ 20-12.5mg TABLET PO SCH (09:13)
--- NOTE | 2018-02-14 09:45 | Discharge Summary ---
Date of Encounter: 02/14/18 Time of Encounter: 09:41 - Discharge Diagnosis (1) CAD (coronary artery disease) Priority: Primary Status: Acute Qualifiers: Coronary Disease-Associated Artery/Lesion type: [place] artery [place] vs. transplanted heart: [place] heart Associated angina: with unstable angina Qualified Code(s): I25.110 - Atherosclerotic heart disease of [place] coronary artery with unstable angina pectoris - Hospital Course Hospital course: Mr. Islas is a 57 year old male - Time Spent with Patient Total time spent providing and/or coordinating discharge services: - Discharge Medications Home Medications: Aspirin [Lo-Dose Aspirin EC] 81 mg PO DAILY 02/09/18 [History] Cholestyramine 4 gm PO BIDAC 02/09/18 [History] Ibuprofen [Ibu] 400 mg PO Q6H PRN 02/09/18 [History] Lisinopril [Zestril] 20 mg PO QPM 02/09/18 [History] Lisinopril-HCTZ 20-12.5 [Prinzide 20-12.5] 1 tab PO QAM 02/09/18 [History] Allergies/Adverse Reactions: 3 Allergy/AdvReac Type Severity Reaction Status Date / Time No Known Allergies Allergy Verified 02/09/18 19:56 Date of admission: 02/13/18 18:23 Primary care physician: Anya Bullard CNP Procedure(s) Performed: 02/13/2018. Coronary artery bypass grafting 3, utilizing the left internal mammary artery. Discharging clinician: David Saleem Anticipated date of discharge: 02/14/18 Physical Examination Vital Signs, Last 4 Hours Temp Pulse Resp BP Pulse Ox 02/14/18 08:00 99.5 F 82 20 102/49 97 02/14/18 07:00 90 20 98/48 95 02/14/18 06:00 99.6 F 94 16 104/51 96 - Patient Status Condition: Fair - Discharge Instructions Follow Up With: Anya Bullard CNP [Primary Care Provider] - - VTE Documentation of Mechanical Device: Graduated compression elastic hosiery
[2018-02-14] MEDS ORDERED: *HR* Dextrose 50 % in Water (Syg) 50 ML SYRINGE IVP PRN (12:08)
[2018-02-14] MEDS ORDERED: D5% in Water 1,000 ML IVC PRN (12:08)
[2018-02-14] MEDS ORDERED: Nitroglycerin 0.4 MG TAB.SUBL SL PRN (12:08)
[2018-02-14] MEDS ORDERED: *HR* Promethazine 25 MG/ML VIAL IVP PRN (12:08)
[2018-02-14] MEDS ORDERED: Ondansetron 4 MG/2 ML VIAL IVP PRN (12:08)
[2018-02-14] MEDS ORDERED: Acetaminophen 325 MG TABLET PO PRN (12:08)
[2018-02-14] MEDS ORDERED: Dextrose Gel 15 GM/37.5 ML TUBE PO PRN ×2 (12:08)
[2018-02-14] MEDS ORDERED: Naloxone 0.4 MG/ML INJ IVP PRN (12:08)
[2018-02-14] MEDS: Insulin LISPRO 300 UNITS/3 ML VIAL SQ SCH ×3 (14:26→20:03)
[2018-02-14] MEDS: *HR* Heparin 5,000 UNIT/ML VIAL SQ SCH (17:04)
[2018-02-14] MEDS: Albumin 25% 25gram/100mL 25 GM/100 ML IV.SOLN IVC SCH ×4 (19:54→20:03)
[2018-02-15] MEDS: Albumin 25% 25gram/100mL 25 GM/100 ML IV.SOLN IVC SCH ×4 (01:18→05:32)
[2018-02-15] MEDS: *HR* OxyCODONE/APAP 5/325 TABLET PO PRN ×4 (03:27→20:57)
[2018-02-15] MEDS: Ipratropium/Albuterol Neb 3 ML IH SCH ×2 (03:47→10:32)
[2018-02-15 04:20] LABS: Basophils % 0.1 %; Eosinophils # 0.1 K/mcL (0.0-0.6); Hematocrit 24.3 % (37.5-50.1); Immature Granulocytes % 0.3 % (0-4); Lymphocytes # 1.4 K/mcL (0.6-4.6); Lymphocytes % 17.7 %; Mean Corpuscular HGB Conc 33.3 g/dL (31.6-35.5); Mean Corpuscular Hemoglobin 28.3 pg (28.0-33.3); Mean Platelet Volume 10.2 fL (9.4-12.4); Monocytes # 0.8 K/mcL (0.0-1.3); Monocytes % 10.4 %; Neutrophils # 5.4 K/mcL (1.6-8.9); Platelet Count 112 K/mcL (140-400); Red Blood Count 2.86 M/mcL (4.19-5.50); Red Cell Distribution Width 13.3 % (11.5-14.5); Segmented Neutrophils % 70.5 %
[2018-02-15 04:21] LABS: Hemoglobin 8.1 g/dL (12.9-16.9)
[2018-02-15 04:35] LABS: BUN/Creatinine Ratio 18 (6-26); Blood Urea Nitrogen 21 mg/dL (6-20); Carbon Dioxide 22 mEq/L (23-29); Chloride 108 mEq/L (98-107); Glucose 113 mg/dL (70-105); Osmolality,Calculated 288 (280-300); Potassium 4.1 mEq/L (3.5-5.1); Sodium 137 mEq/L (136-145); eGFR For African Americans > 60 (> 60); eGFR For Non-African Americans > 60 (> 60)
[2018-02-15] MEDS: *HR* Heparin 5,000 UNIT/ML VIAL SQ SCH ×2 (05:32→18:22)
--- NOTE | 2018-02-15 07:26 | Anesthesia Evaluation Post Op ---
Date of Encounter: 02/14/18 Time of Encounter: 08:00 - Vital Signs Vital Signs: Selected Entries 02/14/18 08:00 Temperature 99.5 F Pulse Rate 82 Respiratory Rate 20 Blood Pressure 102/49 O2 Sat by Pulse Oximetry 97 Oxygen Flow Rate (LPM) 2 Oxygen Delivery Method Nasal Cannula - Lungs Lungs: Clear Ascult./Percussion - Airway Airway: Non-obstructed - Cardiovascular Regular Rate - Mental Status Mental Status: Alert & Oriented, Answers Appropriately - Pain Pain Scale: 4 Pain Scale used: Numeric (1 - 10) - Nausea Vomiting Nausea Vomiting: Not Present - Hydration Hydration: Tolerates oral liquids, Martinez catheter Notes: 02/15/18 07:25 Patient sitting up in chair. Still on low dose Levophed. [place] and martinez still in place. No apparent anesthesia issues. Disposition per CT surgery
[2018-02-15] MEDS: Insulin LISPRO 300 UNITS/3 ML VIAL SQ SCH ×4 (07:37→20:51)
[2018-02-15] MEDS: Cholestyramine 4 GM POWD.PACK PO SCH ×2 (07:40→16:11)
--- NOTE | 2018-02-15 08:19 | Cardiothoracic Progress Note ---
Date of Encounter: 02/15/18 Time of Encounter: 08:17 - Assessment and plan (1) CAD (coronary artery disease) Current Visit: Yes Status: Acute The patient has a hemoglobin of 8.1, but is asymptomatic from this. He does have the usual, expected acute postoperative blood loss anemia. Chest tubes and pacing wires were removed. We will discontinue his Jeffries catheter. He has transfer orders when a bed becomes available. Qualifiers: Coronary Disease-Associated Artery/Lesion type: [place] artery [place] vs. transplanted heart: [place] heart Associated angina: with unstable angina Qualified Code(s): I25.110 - Atherosclerotic heart disease of [place] coronary artery with unstable angina pectoris - Subjective Interval history: The patient has no complaints other than mild postoperative pain. Vital Signs, Last 4 Hours Temp Pulse Resp BP Pulse Ox 02/15/18 08:00 76 29 97/51 94 02/15/18 07:00 98.7 F 73 02/15/18 06:00 72 22 95/47 95 02/15/18 05:00 75 20 93/47 95 Oxgyen Flow Rate Oxygen Flow Rate (LPM) 2 Clinical Data, last 8 Hours Output, Chest Tube Drainage 15 Amount [Mediastinal #3] Output, Chest Tube Drainage 20 Amount [Mediastinal #3] Output, Chest Tube Drainage 10 Amount [Mediastinal #2] Output, Chest Tube Drainage 0 Amount [Mediastinal #2] Output, Chest Tube Drainage 20 Amount [Mediastinal #1] Lungs are clear to percussion and auscultation. Heart is in a normal sinus rhythm. All incisions are healing well without signs of infection and the sternum is stable. Chest tube drainage is minimal and there is no air leak. - Labs 02/15/18 04:00 02/15/18 00:01 Lab Results, Last 24 hours 02/15/18 02/15/18 00:01 04:00 WBC 7.7 Hgb 8.1 L D Hct 24.3 L Plt Count 112 L Sodium 137 Potassium 4.1 Chloride 108 H Carbon Dioxide 22 L BUN 21 H Creatinine 1.14 Glucose 113 H Calcium 8.0 L - VTE Documentation of Mechanical Device: Graduated compression elastic hosiery Consult Discharge Plan - Plan Referrals: Anya Bullard CNP [Primary Care Provider] -
[2018-02-15] MEDS ORDERED: Lisinopril-HCTZ 20-12.5mg TABLET PO SCH (09:00)
[2018-02-15] MEDS: Aspirin Enteric Coated 81 MG Tablet PO SCH (09:49)
[2018-02-15] MEDS: Chlorhexidine Rinse 15 ML MOUTHWASH MM SCH ×2 (09:49→20:50)
[2018-02-15] MEDS: Nicotine 21 MG PATCH.TD24 TD SCH (09:49)
[2018-02-15] MEDS: Norepinephrine 4 MG in D5% in Water 250 ML IVC SCH (09:59)
--- NOTE | 2018-02-15 10:43 | Internal Med Progress Note ---
Date of Encounter: 02/15/18 Time of Encounter: 10:40 - Assessment and plan (1) Chest pain Current Visit: Yes Status: Acute Assessment and plan: See NSTEMI Qualifiers: Chest pain type: unspecified Qualified Code(s): R07.9 - Chest pain, unspecified (2) HTN (hypertension) Current Visit: Yes Status: Chronic Assessment and plan: continue current management Qualifiers: Hypertension type: essential hypertension Qualified Code(s): I10 - Essential (primary) hypertension (3) HLD (hyperlipidemia) Current Visit: Yes Status: Chronic Assessment and plan: continue current management Qualifiers: Hyperlipidemia type: unspecified Qualified Code(s): E78.5 - Hyperlipidemia , unspecified (4) Tobacco abuse Current Visit: Yes Status: Chronic Assessment and plan: encourage cessation (5) DVT prophylaxis Current Visit: Yes Status: Acute Assessment and plan: Heparin (6) COPD exacerbation Current Visit: Yes Status: Acute Assessment and plan: Suspected with smoking history, SOB and wheezing on exam. No increase in sputum production, afebrile. No indication for ATB at this time. Steroid burst , bronchodilators. (7) Lung nodule Current Visit: Yes Status: Acute Assessment and plan: Chest CTA with a few solid nodules in the right upper lobe measuring up to 0.3 cm. Likely secondary to an infectious or inflammatory process. Recommend repeat chest CT in 12 months (8) NSTEMI (non-ST elevated myocardial infarction) Current Visit: Yes Status: Acute Assessment and plan: s/p CABG, mgt per thoracic surgery - Time Spent With Patient Total time spent is greater than 50% in coordination of care (as documented) at patient's floor/unit and/or counseling patient: - Subjective Interval history: Seen and examined at the bedside Patient has NSTEMI s/p CABG he is a thoraci surgery patient being transferred from the intensive care to He denies any complains He is POD2 He also has acute post-op anemia, asymptomatic Patient will be signed off [facility] thoracic surgery as primary service, kindly consult medicine for any new evaluations. - Constitutional Vitals: Temp Pulse Resp BP Pulse Ox 98.7 F 78 18 98/54 93 02/15/18 07:00 02/15/18 10:00 02/15/18 10:33 02/15/18 10:00 02/15/18 10:33 General appearance: Present: A&O X 3, pleasant, no acute distress - Head Head exam: Present: atraumatic, normocephalic - Eye Eye exam: Present: PERRL, conjuntiva pink, sclera anicteric Pupils: Present: PERRL - Neck Neck exam general surgery: Present: supple, trachea midline. Absent: lymphadenopathy - Respiratory Respiratory exam: Present: CTAB. Absent: accessory muscle use, rales, rhonchi, wheezes Additional comments: dressing clean and dry - Cardiovascular Cardiovascular exam: Present: RRR, +S1, +S2. Absent: diastolic murmur, gallop, rubs, systolic murmur - GI/Abdominal GI/Abdominal exam: Present: normal bowel sounds, soft, no peritoneal signs. Absent: distended, tenderness - Extremities Exam Extremities exam: Present: warm, radial pulses palpable and symmetrical. Absent : calf tenderness, cyanotic, pedal edema - Neurological Exam Neurological exam: Present: alert, CN II-XII intact, oriented X3, no focal deficits. Absent: pronater drift, facial droop, speech deficit - Skin Skin exam: Present: dry, intact Internal Medicine: Result - Labs CBC & Chem 7: 02/15/18 04:00 02/15/18 00:01 Labs: Short CBC 02/15/18 Range/Units 04:00 WBC 7.7 (4.3-11.1) K/mcL Hgb 8.1 L D (12.9-16.9) g/dL Hct 24.3 L (37.5-50.1) % Plt Count 112 L (140-400) K/mcL Neutrophils # 5.4 (1.6-8.9) K/mcL BMP 02/15/18 00:01 Sodium 137 Potassium 4.1 Chloride 108 H Carbon Dioxide 22 L BUN 21 H Creatinine 1.14 Glucose 113 H Calcium 8.0 L - ABG Interpretation ABG results: ABG ABG pH 7.38 pH Units (7.32-7.45) 02/13/18 18:30 ABG pCO2 43 mmHg (35-45) 02/13/18 18:30 ABG pO2 101 mmHg (85-104) D 02/13/18 18:30 ABG O2 Saturation 98 % (95-98) 02/13/18 18:30 PT/INR, D-dimer PT 12.0 Seconds (9.4-12.1) 02/14/18 04:40 - Impressions Impressions Chest X-Ray 02/15/18 08:20 IMPRESSION: No pneumothorax. Small left pleural effusion and increasing left basilar atelectasis. D/ / 02/15/2018 08:58:45 Sarthak Adams MD / [facility] Interpreting Provider: Sarthak Adams MD - VTE Documentation of Mechanical Device: Graduated compression elastic hosiery Consult Discharge Plan - Plan Referrals: Anya Bullard, [employer] [Primary Care Provider] -
[2018-02-15] MEDS ORDERED: Ipratropium/Albuterol Neb 3 ML IH PRN (10:46)
[2018-02-15] MEDS ORDERED: Simethicone 80 MG TAB.CHEW PO PRN (21:43)
[2018-02-16 04:20] LABS: Basophils % 0.2 %; Eosinophils # 0.2 K/mcL (0.0-0.6); Hematocrit 23.5 % (37.5-50.1); Hemoglobin 7.9 g/dL (12.9-16.9); Immature Granulocytes % 0.3 % (0-4); Lymphocytes # 1.2 K/mcL (0.6-4.6); Lymphocytes % 18.3 %; Mean Corpuscular HGB Conc 33.6 g/dL (31.6-35.5); Mean Corpuscular Hemoglobin 28.6 pg (28.0-33.3); Mean Corpuscular Volume 85.1 fL (83.0-100.0); Mean Platelet Volume 9.9 fL (9.4-12.4); Monocytes # 0.7 K/mcL (0.0-1.3); Monocytes % 10.1 %; Neutrophils # 4.5 K/mcL (1.6-8.9); Platelet Count 125 K/mcL (140-400); Red Blood Count 2.76 M/mcL (4.19-5.50); Red Cell Distribution Width 13.2 % (11.5-14.5); Segmented Neutrophils % 68.1 %
[2018-02-16 04:39] LABS: BUN/Creatinine Ratio 24 (6-26); Blood Urea Nitrogen 29 mg/dL (6-20); Calcium 8.3 mg/dL (8.6-10.3); Carbon Dioxide 21 mEq/L (23-29); Chloride 104 mEq/L (98-107); Glucose 115 mg/dL (70-105); Osmolality,Calculated 279 (280-300); Potassium 3.6 mEq/L (3.5-5.1); Sodium 131 mEq/L (136-145); eGFR For African Americans > 60 (> 60); eGFR For Non-African Americans > 60 (> 60)
[2018-02-16] MEDS: *HR* Heparin 5,000 UNIT/ML VIAL SQ SCH ×2 (05:30→17:15)
[2018-02-16] MEDS: Nicotine 21 MG PATCH.TD24 TD SCH (08:15)
[2018-02-16] MEDS: Cholestyramine 4 GM POWD.PACK PO SCH ×2 (08:15→17:15)
[2018-02-16] MEDS: Aspirin Enteric Coated 81 MG Tablet PO SCH (08:16)
[2018-02-16] MEDS: Chlorhexidine Rinse 15 ML MOUTHWASH MM SCH ×2 (08:17→20:44)
--- NOTE | 2018-02-16 08:34 | Cardiothoracic Progress Note ---
Date of Encounter: 02/16/18 Time of Encounter: 08:32 - Assessment and plan (1) CAD (coronary artery disease) Current Visit: Yes Status: Acute I will start the patient back on his low-dose hydrochlorothiazide. Hopefully, he can be discharged on Monday. Qualifiers: Coronary Disease-Associated Artery/Lesion type: [place] artery [place] vs. transplanted heart: [place] heart Associated angina: with unstable angina Qualified Code(s): I25.110 - Atherosclerotic heart disease of [place] coronary artery with unstable angina pectoris - Subjective Interval history: The patient's pain is well controlled. He has had a bowel movement and is urinating without difficulty. He is beginning to ambulate. Vital Signs, Last 4 Hours Temp Pulse Resp BP Pulse Ox 02/16/18 07:24 98.8 F 76 20 108/57 94 02/16/18 05:03 18 93 Oxgyen Flow Rate Oxygen Flow Rate (LPM) 2.5 Weight 02/14/18 02/15/18 02/16/18 23:59 23:59 23:59 Weight 90.3 kg 90.3 kg Lungs are clear to percussion and auscultation. Heart is in a normal sinus rhythm. All incisions are healing well without signs of infection and the sternum is stable. - Labs 02/16/18 04:00 02/16/18 04:00 Lab Results, Last 24 hours 02/16/18 02/16/18 04:00 04:00 WBC 6.7 Hgb 7.9 L Hct 23.5 L Plt Count 125 L Sodium 131 L Potassium 3.6 Chloride 104 Carbon Dioxide 21 L BUN 29 H Creatinine 1.21 Glucose 115 H Calcium 8.3 L - VTE Documentation of Mechanical Device: Graduated compression elastic hosiery Consult Discharge Plan - Plan Referrals: Anya Bullard, MARIAMA [Primary Care Provider] -
[2018-02-16] MEDS: hydroCHLOROthiazide 25 MG TABLET PO SCH (09:36)
[2018-02-16] MEDS: *HR* OxyCODONE/APAP 5/325 TABLET PO PRN ×2 (10:52→20:45)
[2018-02-17 00:56] LABS: Basophils % 0.3 %; Eosinophils # 0.3 K/mcL (0.0-0.6); Eosinophils % 3.4 %; Hematocrit 23.2 % (37.5-50.1); Hemoglobin 7.9 g/dL (12.9-16.9); Immature Granulocytes % 0.3 % (0-4); Lymphocytes # 1.5 K/mcL (0.6-4.6); Lymphocytes % 21.1 %; Mean Corpuscular HGB Conc 34.1 g/dL (31.6-35.5); Mean Corpuscular Hemoglobin 28.5 pg (28.0-33.3); Mean Corpuscular Volume 83.8 fL (83.0-100.0); Mean Platelet Volume 9.9 fL (9.4-12.4); Monocytes # 0.8 K/mcL (0.0-1.3); Monocytes % 10.8 %; Neutrophils # 4.7 K/mcL (1.6-8.9); Platelet Count 167 K/mcL (140-400); Red Blood Count 2.77 M/mcL (4.19-5.50); Red Cell Distribution Width 13.2 % (11.5-14.5); Segmented Neutrophils % 64.1 %
[2018-02-17 01:14] LABS: BUN/Creatinine Ratio 27 (6-26); Blood Urea Nitrogen 30 mg/dL (6-20); Calcium 8.3 mg/dL (8.6-10.3); Carbon Dioxide 19 mEq/L (23-29); Chloride 104 mEq/L (98-107); Glucose 107 mg/dL (70-105); Osmolality,Calculated 279 (280-300); Potassium 3.6 mEq/L (3.5-5.1); Sodium 131 mEq/L (136-145); eGFR For African Americans > 60 (> 60); eGFR For Non-African Americans > 60 (> 60)
[2018-02-17] MEDS: Cholestyramine 4 GM POWD.PACK PO SCH (06:25)
[2018-02-17] MEDS: *HR* Heparin 5,000 UNIT/ML VIAL SQ SCH (06:25)
[2018-02-17 07:15] VITALS: BP 101/52
[2018-02-17] MEDS: Aspirin Enteric Coated 81 MG Tablet PO SCH (08:28)
[2018-02-17] MEDS: Nicotine 21 MG PATCH.TD24 TD SCH (08:29)
[2018-02-17] MEDS: *HR* OxyCODONE/APAP 5/325 TABLET PO PRN (08:29)
[2018-02-17] MEDS: hydroCHLOROthiazide 25 MG TABLET PO SCH (08:29)
[2018-02-17] MEDS: Chlorhexidine Rinse 15 ML MOUTHWASH MM SCH (08:29)
--- NOTE | 2018-02-17 08:36 | Discharge Summary ---
Date of Encounter: 02/17/18 Time of Encounter: 08:30 - Discharge Diagnosis (1) CAD (coronary artery disease) Priority: Primary Status: Acute Qualifiers: Coronary Disease-Associated Artery/Lesion type: [place] artery [place] vs. transplanted heart: [place] heart Associated angina: with unstable angina Qualified Code(s): I25.110 - Atherosclerotic heart disease of [place] coronary artery with unstable angina pectoris - Hospital Course Hospital course: Mr. Islas is a 57 year old male The patient is a 57-year-old gentleman who presented with chest pain. He did have a history of smoking, hypertension and hyperlipidemia. Cardiac catheterization revealed left main disease as well as triple vessel disease and he was referred for surgery. On 02/13/2018, I took him to the operating room for coronary bypass grafting 3, utilizing his left internal mammary artery. On February 14 transfer orders were written. His postoperative hemoglobin did go down to 7.9, but was stable. He did have the usual, expected acute postoperative blood loss anemia. On February 15 his chest tubes and pacing wires were discontinued. The patient otherwise did well and was discharged on February 17. At that time he was afebrile. Lungs were clear to percussion and auscultation. Heart was in a normal sinus rhythm. All incisions were healing well without signs of infection and the sternum was stable. Discharge medications are on the [employer] rec and include Percocet for pain. I did check the [place] automated Rx reporting system. He was postoperative was given a one-week supply. Appropriate precautions were given. He was not on a statin because of possible side effects, but did take cholestyramine. He is to return to his previous and regular diet. He was to avoid heavy lifting for a total of 3 months after surgery, but to walk as much as possible. He was to avoid driving for 1 month. He was to follow up and see me in the office in 4 weeks as directed. He was to follow-up with his digital content specialist and primary care doctor as directed. He was to call sooner for any difficulties. The patient was on lisinopril twice a day preoperatively, but his blood pressure in the hospital was low. We did not send him home on lisinopril, but he is to check his blood pressure and resume if it begins to rise. - Time Spent with Patient Total time spent providing and/or coordinating discharge services: - Discharge Medications Prescriptions: OxyCODONE/APAP 5/325 [Percocet 5/325 MG] 1 each PO Q4HR PRN 7 Days #20 tablet PRN Reason: Severe Pain hydroCHLOROthiazide [Hydrochlorothiazide] 12.5 mg PO DAILY #30 tablet Metoprolol [Lopressor] 25 mg PO BID #60 tablet Nicotine Patch [Nicoderm] 21 mg TD DAILY #14 patch.td24 Home Medications: Aspirin [Lo-Dose Aspirin EC] 81 mg PO DAILY 02/09/18 [History] Cholestyramine 4 gm PO BIDAC 02/09/18 [History] Ibuprofen [Ibu] 400 mg PO Q6H PRN 02/09/18 [History] Metoprolol [Lopressor] 25 mg PO BID #60 tablet 02/17/18 [Rx] Nicotine Patch [Nicoderm] 21 mg TD DAILY #14 patch.td24 02/17/18 [Rx] OxyCODONE/APAP 5/325 [Percocet 5/325 MG] 1 each PO Q4HR PRN 7 Days #20 tablet [Rx] hydroCHLOROthiazide [Hydrochlorothiazide] 12.5 mg PO DAILY #30 tablet 02/17/18 [ Rx] Allergies/Adverse Reactions: 3 Allergy/AdvReac Type Severity Reaction Status Date / Time No Known Allergies Allergy Verified 02/09/18 19:56 Date of admission: 02/13/18 18:23 Primary care physician: Anya Bullard CNP Consults: 02/14/18 12:08 Consult for Pharmacy Education [CONS] Routine Reason for Consult: Post-Op Heart Call Completed: Yes Consult to Occupational Therapy [CONS] Routine Comment: Evaluate, develop and implement POC Reason for Consult: Post-Op Heart Does patient have active BEDREST order?: No Is patient medically & hemodynamically stable?: Yes Consult to Physical Therapy [CONS] Routine Comment: Evaluate, develop and implement POC Reason for Consult: Post open heart Does patient have active BEDREST order?: No Is patient medically & hemodynamically stable?: Yes Procedure(s) Performed: 02/13/2018. Coronary artery bypass grafting 3, utilizing his left internal mammary artery. Discharging clinician: David Saleem Anticipated date of discharge: 02/17/18 Physical Examination Vital Signs, Last 4 Hours Temp Pulse Resp BP Pulse Ox 02/17/18 07:05 98.7 F 69 18 101/52 92 - Patient Status Disposition: Home, Self-Care Condition: Fair Functional capacity at discharge: independent ambulation Overall status at discharge: patient is progressing back to baseline - Discharge Instructions Follow Up With: David Saleem MD [Partnered Physician] - 03/13/18 1:15 pm Anya Bullard CNP [Primary Care Provider] - (Office is only Open on Mon, Mon, 5-9pm Saturdays 9A to1:00PM Patient will have to call and make follow up appointment) Ammon Hagen [Partnered Physician] - 04/02/18 11:30 am Open Heart Registry Aspirin Cont/Prescribed at DC: Yes Beta Malk[place] Cont/Prescribed at DC: Yes Statin Cont/Prescribed at DC: No Contraindication No Statin at DC: Refusal of treatment by patient GIOVANY/ARB Cont/Prescribed at DC: Not indicated - VTE Documentation of Mechanical Device: Intermittent pneumatic compression device
== END 2018-02-17 10:33 | disposition home or self-care (01) | DRG 234 ==
LOC: EMEROO 19:50 → 3BNU 19:50 → ICNU 02-13 09:17 → SUATTDRO 02-13 18:23 → 2NNU 02-15 19:34
PROVIDERS: ADMIT Internal Medicine; ATTEND Internal Medicine

== ENCOUNTER 2018-02-20 02:56 | Observation (INO) ==
[2018-02-20 03:46] LABS: BUN/Creatinine Ratio 19 (6-26); Blood Urea Nitrogen 19 mg/dL (6-20); Calcium 9.4 mg/dL (8.6-10.3); Carbon Dioxide 20 mEq/L (23-29); Chloride 103 mEq/L (98-107); Glucose 136 mg/dL (70-105); Magnesium 2.1 mg/dL (1.6-2.6); Osmolality,Calculated 284 (280-300); Sodium 135 mEq/L (136-145); eGFR For African Americans > 60 (> 60); eGFR For Non-African Americans > 60 (> 60)
[2018-02-20 03:48] LABS: Troponin I 0.06 ng/mL (< 0.04)
--- NOTE | 2018-02-20 03:53 | Emergency Department Note ---
Disposition Clinical Impression: Palpitations, Status post aorto-coronary artery bypass graft, Elevated troponin Disposition: Admitted As Inpatient Condition: Good Referrals: Cardiology Susie [Provider Group] Cardiothoracic Surgery Susie [Provider Group] Forms: ED Satisfaction Letter Time of Disposition: 06:02 Arrhythmia/Palpitations HPI - General Chief Complaint: ED Arrhythmia/Palpitations Stated Complaint: palpitations, rapid heart rate, recent open heart Time Seen by Provider: 02/20/18 03:03 Source: patient Mode of arrival: ambulatory Limitations: no limitations Nursing Notes Reviewed: Yes Vital Signs Reviewed: Yes - History of Present Illness HPI Narrative: 57-year-old male with a history of hypertension, hyperlipidemia, CAD status post CABG presents for evaluation of heart palpitations. Patient states he has had 2 isolated episodes of heart palpitations that occurred within the past 24 hours. Patient reports she had a heart bypass last week and was released 2 days ago to go home. Patient states he does not have any chest pain. Patient reports that the palpitations came on spontaneously. Patient notes that the last one lasted approximately 2 hours and then resolved. Patient did check his heart rate goes up in the 150s. Patient does not have history of A. fib or irregular heart rhythm. Patient denies a nausea vomiting diaphoresis. - Related Data Home Medications Medication Instructions Recorded Confirmed Aspirin [Lo-Dose Aspirin EC] 81 mg PO DAILY 02/09/18 02/09/18 Cholestyramine 4 gm PO BIDAC 02/09/18 02/09/18 Ibuprofen [Ibu] 400 mg PO Q6H PRN 02/09/18 02/09/18 Previous Rx's Medication Instructions Recorded Metoprolol [Lopressor] 25 mg PO BID #60 tablet 02/17/18 Nicotine Patch [Nicoderm] 21 mg TD DAILY #14 patch.td24 02/17/18 OxyCODONE/APAP 5/325 [Percocet 1 each PO Q4HR PRN 7 Days #20 02/17/18 5/325 MG] tablet hydroCHLOROthiazide 12.5 mg PO DAILY #30 tablet 02/17/18 [Hydrochlorothiazide] Allergies Allergy/AdvReac Type Severity Reaction Status Date / Time No Known Allergies Allergy Verified 02/09/18 19:56 All systems ED: reviewed and negative except as stated. Constitutional: Denies: fever ENT ED: Denies: ear pain Cardiovascular: Denies: chest pain Respiratory: Denies: cough, dyspnea, wheezes Gastrointestinal: Denies: abdominal pain, nausea, vomiting Past Medical History - Past Medical History Source: patient Medical history: Reports: COPD, coronary artery disease, hyperlipidemia, hypertension, myocardial infarction, other Surgical history: Reports: no surgical history Psychiatric history: Reports: no psych history - Social History Smoking Status: Former smoker Smokeless Tobacco Status: No Alcohol use: Reports: none Drug use: Reports: none Physical Exam - General Limitations: no limitations General appearance: alert, in no apparent distress - Head Head exam: atraumatic, normocephalic, normal inspection - Eye Eye exam: Present: normal appearance, PERRL, EOMI - ENT ENT exam: normal exam, normal oropharynx, mucous membranes moist - Neck Neck exam: Present: normal inspection - Chest Chest inspection: Present: normal inspection, symmetric chest wall rise, other ( Well approximated midlines sternotomy incision without signs of infection.) - Respiratory Respiratory exam: Present: normal lung sounds bilaterally. Absent: respiratory distress, prolonged expiratory phase - Cardiovascular Cardiovascular exam: Present: regular rate, normal rhythm. Absent: systolic murmur - Abdominal Exam Abdominal exam: Present: soft, Non-Tender - Extremities Exam Extremities exam: Present: normal inspection. Absent: pedal edema - Neurological Exam Neurological exam: Present: alert, oriented X3 - Skin Skin exam: Present: warm, dry, intact, normal color Course Course Narrative: Patient seen and examined. Patient appears be no acute distress. Patient has basic labs. Patient denies any chest pain. Patient does not have any signs of arrhythmia on the monitor. Disposition pending. Vital Signs Temperature 98.8 F 02/20/18 02:59 Pulse Rate 101 02/20/18 02:59 Respiratory Rate 18 02/20/18 02:59 Blood Pressure 126/83 02/20/18 02:59 O2 Sat by Pulse Oximetry 96 02/20/18 02:59 Temperature 98.8 F 02/20/18 02:59 Pulse Rate 83 02/20/18 04:33 Respiratory Rate 18 02/20/18 04:33 Blood Pressure 105/68 02/20/18 04:33 O2 Sat by Pulse Oximetry 95 02/20/18 04:33 Oxygen Delivery Oxygen Delivery Room Air Arrhythmia/Palpitations - [facility] Narrative Medical decision making narrative: 57-year-old male presented for violation of palpitations. Patient is postop from a CABG. Patient denies any chest pain. Patient's had intermittent episodes of tachycardia which he knew was in the 140s to 150s. That has since resolved spontaneously. Patient basic labs obtained which did show an elevation troponin and repeat troponin did show a slight increase. Given the increase in the troponin and the patient's recent surgery the patient will be admitted for observation. This elevation troponin may be entirely related to the patient's recent surgery however with his palpitations he will need to be further observed. - Lab Data Lab results reviewed: Yes I reviewed the patient's lab results. Result diagrams: 02/20/18 05:29 02/20/18 03:12 Lab Results 02/20/18 02/20/18 02/20/18 Range/Units 03:12 05:29 05:29 WBC 10.7 (4.3-11.1) K/mcL RBC 3.04 L (4.19-5.50) M/mcL Hgb 8.8 L (12.9-16.9) g/dL Hct 25.5 L (37.5-50.1) % MCV 83.9 (83.0-100.0) fL MCH 28.9 (28.0-33.3) pg MCHC 34.5 (31.6-35.5) g/dL RDW 13.2 (11.5-14.5) % Plt Count 336 D (140-400) K/mcL MPV 9.1 L (9.4-12.4) fL Immature Gran % 0.6 (0-4) % Seg Neutrophils % 72.4 % Lymphocytes % 14.5 % Monocytes % 9.5 % Eosinophils % 2.5 % Basophils % 0.5 % Neutrophils # 7.8 (1.6-8.9) K/mcL Lymphocytes # 1.6 (0.6-4.6) K/mcL Monocytes # 1.0 (0.0-1.3) K/mcL Eosinophils # 0.3 (0.0-0.6) K/mcL Basophils # 0.1 (0.0-0.2) K/mcL Immature Plt Fraction 1.8 (1.1-6.1) % Sodium 135 L (136-145) mEq/L Potassium 4.0 (3.5-5.1) mEq/L Chloride 103 (98-107) mEq/L Carbon Dioxide 20 L (23-29) mEq/L BUN 19 (6-20) mg/dL Creatinine 1.00 (0.70-1.30) mg/dL Est GFR ( Amer) > 60 (> 60) Est GFR (Non-Af Amer) > 60 (> 60) BUN/Creatinine Ratio 19 (6-26) Glucose 136 H (70-105) mg/dL Calculated Osmolality 284 (280-300) Calcium 9.4 (8.6-10.3) mg/dL Magnesium 2.1 (1.6-2.6) mg/dL Troponin I 0.06 H* 0.07 H* (< 0.04) ng/mL TSH 7.676 H (0.340-5.600) mcIU/mL - Radiology Data Chest X-Ray 02/20/18 03:07 IMPRESSION: Left basilar pleuroparenchymal disease. D/ / Duncan Vigil MD / Duncan Vigil MD Interpreting Provider: Duncan Vigil MD - EKG Data EKG attestation: Yes I reviewed and interpreted this EKG. EKG shows normal: sinus rhythm Rate: normal Rhythm: NSR [place]/QRS: normal Q waves: III When compared to previous EKG there are: no significant changes Interpretation: no acute changes S.B.A.R. - S.B.A.R. Situation: Demographics Background: Presenting Complaint Assessment: Vital Signs, Course and respsone to treatment, Patient/Family Expectation Recommendation: Barrier(s) to disposition, Recommendation based on pending studies, treatments, or consults S.B.A.R. Report Given to: Dr. Duff STieraB.A.Melanie Repor Time: 06:29 Attestation Statement - Attestation Attestation: I examined this patient and my medical decision-making was reviewed with the Resident Physician. I agree with the documented findings, disposition and treatment plan as described except to the extent set forth below. Findings consistent with palpitations in the setting of recent open heart surgery. Cardiac biomarkers are increasing. I would proceed with admission at this point for trending of serial cardiac biomarkers and CT surgery consultation.
[2018-02-20] MEDS ORDERED: Aspirin 81 MG TAB.CHEW PO ONE (03:55)
[2018-02-20 04:00] LABS: Thyroid Stimulating Hormone 7.676 mcIU/mL (0.340-5.600)
[2018-02-20] MEDS ORDERED: 0.9 % Sodium Chloride 1,000 ML IVC ONE (04:07)
[2018-02-20 06:19] LABS: Basophils # 0.1 K/mcL (0.0-0.2); Basophils % 0.5 %; Eosinophils # 0.3 K/mcL (0.0-0.6); Eosinophils % 2.5 %; Hematocrit 25.5 % (37.5-50.1); Hemoglobin 8.8 g/dL (12.9-16.9); Immature Granulocytes % 0.6 % (0-4); Immature Platelets 1.8 % (1.1-6.1); Lymphocytes # 1.6 K/mcL (0.6-4.6); Lymphocytes % 14.5 %; Mean Corpuscular HGB Conc 34.5 g/dL (31.6-35.5); Mean Corpuscular Hemoglobin 28.9 pg (28.0-33.3); Mean Corpuscular Volume 83.9 fL (83.0-100.0); Mean Platelet Volume 9.1 fL (9.4-12.4); Monocytes % 9.5 %; Neutrophils # 7.8 K/mcL (1.6-8.9); Red Blood Count 3.04 M/mcL (4.19-5.50); Red Cell Distribution Width 13.2 % (11.5-14.5); Segmented Neutrophils % 72.4 %
[2018-02-20 06:23] LABS: Platelet Count 336 K/mcL (140-400)
[2018-02-20] MEDS ORDERED: Naloxone 0.4 MG/ML INJ IVP PRN (08:39)
[2018-02-20] MEDS ORDERED: *HR* OxyCODONE/APAP 5/325 TABLET PO PRN (08:46)
--- NOTE | 2018-02-20 08:54 | Internal Med History&Physical ---
Date of Encounter: 02/20/18 Time of Encounter: 08:48 Internal Medicine - H&P: HPI Chief complaint: "Palpitations" Admitted From: Emergency Dept Plans for Post Hospital Care: Home History of present illness: Mr. Islas is a 57 year old male with PMH of HTN, HLD, and CAD s/p CABG 1 week ago, who presented to ED overnight for palpitations. He states that the palpitations started yesterday and were intermittent with 2 discrete episodes. He states that he has had episodes like this off and on over the last few years , but has never been diagnosed with an arrhythmia. He had a CABG last week. He states that he did not have any chest pain or SOB. He states that palpitations actually improved with exertion and activity. He states that his BP has improved since CABG. He states that he witnessed HR go up to 150s at home. At the time of my examination, he denies any chest pain, palpitations, SOB, fever, chills, nausea, vomiting, or abdominal pain. He has no other complaints at this time except mild edema in LLE that has been present since CABG. He denies any pain to LLE. In the ED, he received aspirin 325 mg and IV NS bolus. BP was mildly hypotensive, but improved with bolus. HR was normal. CXR showed persistent left pleural effusion and atelectasis. Labwork was unremarkable except mildly elevated troponin of 0.06 and 0.07. Past Med Surg Social Fam HX - Past Medical History Attestation: Yes The following information was validated with the patient. Medical history: COPD, coronary artery disease, hyperlipidemia, hypertension, myocardial infarction, other (Nicotine Dependence) Additional medical history: CAB 02/13/18 Psychiatric history: no psych history - Past Surgical History Surgical History: coronary bypass (CABG) - Social History Smoking Status: Former smoker Smokeless Tobacco Status: No Alcohol use: none Drug use: none - Family History Father Name: Ed Islas Family Member Ethnicity: Non- Living Status: Age at : 67 Cause of : [place] Hx Family Cardiac Disorders: Yes ([place], [place], HTN) Hx Family Endocrine Disorder: Yes (DM) - Additional Family History Additional family history: Family history reviewed with patient. Internal Medicine - H&P: Meds Aspirin [Lo-Dose Aspirin EC] 81 mg PO DAILY 02/09/18 [History] Cholestyramine 4 gm PO BIDAC 02/09/18 [History] Ibuprofen [Ibu] 400 mg PO Q6H PRN 02/09/18 [History] Metoprolol [Lopressor] 25 mg PO BID #60 tablet 02/17/18 [Rx] Nicotine Patch [Nicoderm] 21 mg TD DAILY #14 patch.td24 02/17/18 [Rx] OxyCODONE/APAP 5/325 [Percocet 5/325 MG] 1 each PO Q4HR PRN 7 Days #20 tablet [Rx] hydroCHLOROthiazide [Hydrochlorothiazide] 12.5 mg PO DAILY #30 tablet 02/17/18 [ Rx] 3 Allergy/AdvReac Type Severity Reaction Status Date / Time No Known Allergies Allergy Verified 02/09/18 19:56 All Systems PM: A 10-system review of systems was performed and is negative for pertinent findings except as documented above in the HPI. - Constitutional Vitals: Temp Pulse Resp BP Pulse Ox 99 F 79 15 111/67 96 02/20/18 07:41 02/20/18 07:41 02/20/18 07:41 02/20/18 07:41 02/20/18 07:41 General appearance: Present: cooperative, A&O X 3, no acute distress, answers questions appropriately - Head Head exam: Present: atraumatic, normal inspection, normocephalic - Eye Eye exam: Present: EOMI, PERRL. Absent: conjunctival injection, nystagmus, scleral icterus - ENT ENT exam: Present: mucous membranes moist, normal external ear exam, normal oropharynx - Neck Neck exam general surgery: Present: supple, trachea midline. Absent: lymphadenopathy, tenderness, thyromegaly - Respiratory Respiratory exam: Present: CTAB. Absent: accessory muscle use, rales, rhonchi, wheezes Additional comments: Normal WOB - Cardiovascular Cardiovascular exam: Present: RRR, +S1, +S2. Absent: diastolic murmur, gallop, rubs, systolic murmur Additional comments: 1+ LLE edema - GI/Abdominal GI/Abdominal exam: Present: normal bowel sounds, soft. Absent: distended, hepatomegaly, mass, splenomegaly, tenderness - Neurological Exam Neurological exam: Present: alert, CN II-XII intact, oriented X3, no focal deficits, strengths equal and symetr throughout. Absent: motor sensory deficit , facial droop, speech deficit - Psychiatric Psychiatric exam: Present: normal affect, normal mood. Absent: agitated, anxious, depressed - Skin Skin exam: Present: dry, intact, warm. Absent: cyanosis, rash Internal Med - H&P Results - Labs CBC & Chem 7: 02/20/18 05:29 02/20/18 03:12 - VTE Documentation of Mechanical Device: Intermittent pneumatic compression device - Assessment and plan (1) Palpitations Current Visit: Yes Status: Acute Assessment and plan: Intermittent episodes. Asymptomatic at this time. Admit for observation given cardiac history and recent CABG. Place on continuous credit adjuster. Supplemental O2 PRN. Continue home metoprolol. Hold home HCTZ due to mild borderline hypotension. Initial troponin mildly elevated; will trend Q6H. Consider cardiology consult if symptoms return or if troponin trends up dynamically. Continue home aspirin. (2) Elevated troponin Current Visit: Yes Status: Acute Assessment and plan: Management as per above. (3) Edema of left lower extremity Current Visit: Yes Status: Acute Assessment and plan: Subacute issue since CABG last week. Non-painful. Will obtain LLE doppler to rule out DVT. Start elevation and SCDs. (4) Atelectasis of left lung Current Visit: Yes Status: Acute Assessment and plan: Start incentive spirometer. Start turn, cough, deep breathe. Up to chair TID and ambulate TID with assistance. (5) COPD (chronic obstructive pulmonary disease) Current Visit: Yes Status: Acute Assessment and plan: Start albuterol nebs Q4H PRN SOB. Qualifiers: COPD type: unspecified COPD Qualified Code(s): J44.9 - Chronic obstructive pulmonary disease, unspecified (6) Status post aorto-coronary artery bypass graft Current Visit: Yes Status: Acute Assessment and plan: Management as per above. Continue home medications. (7) CAD (coronary artery disease) Current Visit: No Status: Acute Assessment and plan: Management as per above. Continue home medications. Qualifiers: Coronary Disease-Associated Artery/Lesion type: [place] artery [place] vs. transplanted heart: [place] heart Associated angina: with unstable angina Qualified Code(s): I25.110 - Atherosclerotic heart disease of [place] coronary artery with unstable angina pectoris (8) HLD (hyperlipidemia) Current Visit: No Status: Chronic Assessment and plan: Continue home medications. Qualifiers: Hyperlipidemia type: unspecified Qualified Code(s): E78.5 - Hyperlipidemia , unspecified (9) HTN (hypertension) Current Visit: No Status: Chronic Assessment and plan: Borderline hypotensive. Hold home HCTZ. Continue home metoprolol. Monitor vitals closely. Qualifiers: Hypertension type: essential hypertension Qualified Code(s): I10 - Essential (primary) hypertension (10) Tobacco abuse Current Visit: No Status: Chronic Assessment and plan: Continue home nicotine transdermal 21 mg QD. (11) DVT prophylaxis Current Visit: No Status: Acute Assessment and plan: Continue SCDs. Low threshold for anticoagulation if DVT confirmed in LLE. - Time Spent With Patient Total time spent is greater than 50% in coordination of care (as documented) at patient's floor/unit and/or counseling patient: less than 15 minutes
[2018-02-20] MEDS ORDERED: Albuterol 2.5 MG/3 ML NEBULIZER IH PRN (09:04)
[2018-02-20] MEDS: Cholestyramine 4 GM POWD.PACK PO SCH ×2 (11:19→18:06)
[2018-02-20] MEDS: Aspirin Enteric Coated 81 MG Tablet PO SCH (11:19)
[2018-02-20] MEDS: Nicotine 21 MG PATCH.TD24 TD SCH (11:19)
[2018-02-20] MEDS: Acetaminophen 325 MG TABLET PO PRN (18:06)
--- NOTE | 2018-02-20 22:05 | Electrocardiograph Report ---
[facility] Test Date: 2018-02-20 Pat Name: Gerald Islas Department: 103 Room: 2S5 Gender: M Practice Administrator: LRS : 1960 Requested By: Karl Blackwell Order Number: [id number] Reading MD: Frank Chen Measurements Intervals [place] Rate: 90 P: 44 WI: 149 QRS: 13 QRSD: 117 T: 77 QT: 356 QTc: 404 Interpretive Statements SINUS RHYTHM Electronically Signed On 02-20-2018 22:03:45 EDT by Frank Chen
[2018-02-21] MEDS ORDERED: *HR* Metoprolol 5 MG/5 ML VIAL IVP ONE (05:02)
[2018-02-21] MEDS ORDERED: 0.9 % Sodium Chloride 500 ML IVC ONE (06:09)
[2018-02-21 06:21] LABS: Basophils % 0.2 %; Eosinophils # 0.4 K/mcL (0.0-0.6); Eosinophils % 3.5 %; Hematocrit 26.7 % (37.5-50.1); Hemoglobin 8.8 g/dL (12.9-16.9); Immature Granulocytes % 0.3 % (0-4); Lymphocytes # 1.4 K/mcL (0.6-4.6); Mean Corpuscular Hemoglobin 27.9 pg (28.0-33.3); Mean Corpuscular Volume 84.8 fL (83.0-100.0); Mean Platelet Volume 8.9 fL (9.4-12.4); Monocytes # 0.8 K/mcL (0.0-1.3); Monocytes % 7.7 %; Neutrophils # 7.5 K/mcL (1.6-8.9); Platelet Count 363 K/mcL (140-400); Red Blood Count 3.15 M/mcL (4.19-5.50); Red Cell Distribution Width 13.2 % (11.5-14.5); Segmented Neutrophils % 74.3 %
[2018-02-21 06:33] LABS: BUN/Creatinine Ratio 19 (6-26); Blood Urea Nitrogen 16 mg/dL (6-20); Calcium 8.8 mg/dL (8.6-10.3); Carbon Dioxide 22 mEq/L (23-29); Chloride 105 mEq/L (98-107); Glucose 123 mg/dL (70-105); Magnesium 2.1 mg/dL (1.6-2.6); Osmolality,Calculated 285 (280-300); Potassium 4.5 mEq/L (3.5-5.1); Sodium 136 mEq/L (136-145); eGFR For African Americans > 60 (> 60); eGFR For Non-African Americans > 60 (> 60)
[2018-02-21 06:44] LABS: Troponin I 0.05 ng/mL (< 0.04)
--- NOTE | 2018-02-21 07:00 | Event Note ---
Addendum entered and electronically signed by Melonie Childs DO 02/21/18 08:27 : Consulted cardiology who recommended increasing the Lopressor to 50mg BID and adding anticoagulation therapy but did not need consultation inpatient and will f/u outpatient. I did not increase Lopressor as patient was given Lopressor 5mg IVP this morning and BP is still soft. Will leave anticoagulation up to primary team today. I called cardiothoracic surgery and they stated that they did not feel like they needed to be consulted either. Original Note: <Melonie Childs - Last Filed: 02/21/18 06:57> Date of Encounter: 02/21/18 Time of Encounter: 05:00 Patient's heart rate has been in the 70s on 90 but suddenly increased to 140bpm. Stat EKG was obtained which showed a flutter. Lopressor 5mg IVP was given and patient's HR decreased to 73bpm. Repeat EKG showed normal sinus rhythm. Patient was resting comfortably the entire time without CP or SOB. BP 117/93. Morning labs pending for Mg and potassium. Repeat troponin 0.05. Will consult cardiology and thoracic surgery. <Saeed Dewitt - Last Filed: 02/21/18 19:00> Date of Encounter: 02/21/18 I discussed the patient with Dr. Childs and assessed him myself as well. I asked her to consult Cardiology and Cardiothoracic Surgery given recent surgery and troponin elevation.
[2018-02-21] MEDS: Cholestyramine 4 GM POWD.PACK PO SCH (08:55)
[2018-02-21] MEDS: Nicotine 21 MG PATCH.TD24 TD SCH (08:55)
[2018-02-21] MEDS: Aspirin Enteric Coated 81 MG Tablet PO SCH (08:55)
[2018-02-21] MEDS: Acetaminophen 325 MG TABLET PO PRN (09:04)
--- NOTE | 2018-02-21 12:59 | Discharge Summary ---
- NOTES TO OUTPATIENT PROVIDER Notes to Outpatient Provider: Recommend follow-up with Emulsion Operator in 1-2 days. - Check if patient decreased nicotine consumption (has been using 21 mg patches daily before admission). - Check for decrease in caffiene (has been drinking 2 cups of coffee daily.). - Check if HCTZ needs restarted, BP was lower-normal during observation. Orders not resulted at time of discharge: Pending orders 02/21/18 05:02 ECG 12 lead ECG [ECG] Stat 02/22/18 04:00 BMP [Basic Metabolic Panel] AM 0400 Complete Blood Count [HEME] AM 0400 Date of Encounter: 02/21/18 Time of Encounter: 12:57 - Discharge Diagnosis (1) Palpitations Priority: Primary Status: Acute (2) HTN (hypertension) Priority: Secondary Status: Chronic Qualifiers: Hypertension type: essential hypertension Qualified Code(s): I10 - Essential (primary) hypertension (3) HLD (hyperlipidemia) Priority: Secondary Status: Chronic Qualifiers: Hyperlipidemia type: unspecified Qualified Code(s): E78.5 - Hyperlipidemia , unspecified (4) Tobacco abuse Priority: Secondary Status: Chronic (5) CAD (coronary artery disease) Priority: Secondary Status: Acute Qualifiers: Coronary Disease-Associated Artery/Lesion type: [place] artery [place] vs. transplanted heart: [place] heart Associated angina: with unstable angina Qualified Code(s): I25.110 - Atherosclerotic heart disease of [place] coronary artery with unstable angina pectoris (6) Status post aorto-coronary artery bypass graft Priority: Secondary Status: Acute (7) Elevated troponin Priority: Secondary Status: Acute (8) COPD (chronic obstructive pulmonary disease) Priority: Secondary Status: Acute Qualifiers: COPD type: unspecified COPD Qualified Code(s): J44.9 - Chronic obstructive pulmonary disease, unspecified (9) Edema of left lower extremity Priority: Secondary Status: Acute (10) Atelectasis of left lung Priority: Secondary Status: Acute (11) DVT prophylaxis Priority: Secondary Status: Acute Assessment and Plan: Continue SCDs. Patient to be discharged today Hospital course: Mr. Islas is a 57 year old male with PMH of HTN, HLD, and CAD s/p CABG 1 week ago, who presented to ED overnight for palpitations. He states that the palpitations started yesterday and were intermittent with 2 discrete episodes. He states that he has had episodes like this off and on over the last few years , but has never been diagnosed with an arrhythmia. He states that he did not have any chest pain or SOB. He states that palpitations actually improved with exertion and activity. He states that his BP has improved since CABG. He states that he witnessed HR go up to 150s at home. At the time of exam on admission, he denies any chest pain, palpitations, SOB, fever, chills, nausea, vomiting, or abdominal pain. He has no other complaints at this time except mild edema in LLE that has been present since CABG. He denies any pain to LLE. In the ED, he received aspirin 325 mg and IV NS bolus. BP was mildly hypotensive, but improved with bolus. HR was normal. CXR showed persistent left pleural effusion and atelectasis. Labwork was unremarkable except mildly elevated troponin of 0.06, 0.07, then 0.05. TSH was elevated at 7.6 Patient was brought in for observation. He remained asymptomatic. He was placed on continuous cardiac monitoring. Home HCTZ was not resumed because of lower blood pressure. home metoprolol was resumed. At about 5 am on 02/21 patient did have brief episode of HR in 140s. A stat EKG showed flutter. He was given IV Lopressor 5 mg once during that time and his heart remained in the 70s since that time. EKG and telemetry monitoring remained sinus rhythm. He did not have any chest pain during that time. Cardiology was consulted who recommended increasing Lopressor to 50 mg PO BID but per phone conversation note in EMR did not need a formal Cardiology consultation. Metoprolol PO dose was not increased since patient has remained HR in the 70s for >12 hours since the IV lopressor was given, and his BP has been 103/68 - 117/93 as well. This was to avoid hypotension and heart block. Further interview with patient shows patient takes 21 mg nicotine patch since his CABG, and he drinks about 2 cups per coffee per day. A Doppler of lower extremities were negative for PE. Patient agrees to follow-up with Cardiology at next available appointment. Patient agrees to stop coffee and other sources of caffeine consumption Patient agrees to decrease nicotine patch as tolerated. Patient agrees to not starting any herbal supplements without consulting his Emulsion Operator. Patient agrees that if palpitations return to go to ED or call the cast iron drain pipe layer physician. Patient agrees if any chest pain, SOB, n/v, numbness/tingling, that he go to ED right away. We discussed anticoagulation since EKG showed flutter. He is agreeable to anticoagulation. He does not have any insurance and so we are arranging to get free voucher for Eliquis or Xarelto. - Time Spent with Patient Total time spent providing and/or coordinating discharge services: - Discharge Medications Home Medications: Aspirin [Lo-Dose Aspirin EC] 81 mg PO DAILY 02/09/18 [History] Cholestyramine 4 gm PO BIDAC 02/09/18 [History] Metoprolol [Lopressor] 25 mg PO BID #60 tablet 02/17/18 [Rx] OxyCODONE/APAP 5/325 [Percocet 5/325 MG] 1 each PO Q4HR PRN 7 Days #20 tablet [Rx] Allergies/Adverse Reactions: 3 Allergy/AdvReac Type Severity Reaction Status Date / Time No Known Allergies Allergy Verified 02/09/18 19:56 Date of admission: 02/20/18 07:22 Primary care physician: PCP NONE Discharging clinician: Kwaku Gomez - Constitutional Vitals: Temp Pulse Resp BP Pulse Ox 98.1 F 71 22 107/60 95 02/21/18 11:27 02/21/18 11:27 02/21/18 11:27 02/21/18 11:27 02/21/18 11:27 General appearance: Present: cooperative, A&O X 3, no acute distress, answers questions appropriately - Head Head exam: Present: atraumatic, normocephalic - Eye Eye exam: Present: PERRL, conjuntiva pink, sclera anicteric Pupils: Present: PERRL - Neck Neck exam general surgery: Present: supple, trachea midline. Absent: lymphadenopathy - Respiratory Respiratory exam: Present: CTAB. Absent: accessory muscle use, rales, rhonchi, wheezes - Cardiovascular Cardiovascular exam: Present: RRR, +S1, +S2. Absent: diastolic murmur, gallop, rubs, systolic murmur - GI/Abdominal GI/Abdominal exam: Present: normal bowel sounds, soft, no peritoneal signs. Absent: distended, tenderness - Extremities Exam Extremities exam: Present: warm, radial pulses palpable and symmetrical. Absent : calf tenderness, cyanotic, pedal edema - Neurological Exam Neurological exam: Present: CN II-XII intact, oriented X3, no focal deficits. Absent: pronater drift, facial droop, speech deficit - Skin Skin exam: Present: dry, intact - Patient Status Disposition: Home, Self-Care Condition: Good Functional capacity at discharge: independent ambulation Overall status at discharge: patient is back to baseline - Discharge Instructions Follow Up With: NONE,PCP [Primary Care Provider] - - Diet and Activity Activity: increase activity as tolerated Diet: low fat, low cholesterol, low salt diet - VTE Documentation of Mechanical Device: Intermittent pneumatic compression device
[2018-02-21 15:57] VITALS: BP 103/63
[2018-02-21] MEDS ORDERED: *HR* Heparin 5,000 UNIT/ML VIAL SQ SCH (18:00)
--- NOTE | 2018-02-23 06:17 | Electrocardiograph Report ---
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
== END 2018-02-21 16:01 | disposition home or self-care (01) ==
LOC: EMEROO 02:56 → 2SOUTHHOLD 02:56
PROVIDERS: ADMIT Family Medicine; ATTEND Family Medicine

== ENCOUNTER 2021-06-04 02:11 | Observation (INO) ==
[2021-06-04 03:22] LABS: Basophils % 0.4 %; Eosinophils # 0.1 K/mcL (0.0-0.6); Hematocrit 20.6 % (37.5-50.1); Immature Granulocytes % 0.4 % (0-4); Lymphocytes # 1.3 K/mcL (0.6-4.6); Lymphocytes % 15.6 %; Mean Corpuscular HGB Conc 27.7 g/dL (31.6-35.5); Mean Corpuscular Volume 61.5 fL (83.0-100.0); Mean Platelet Volume 9.5 fL (9.4-12.4); Monocytes # 0.6 K/mcL (0.0-1.3); Monocytes % 7.6 %; Neutrophils # 6.2 K/mcL (1.6-8.9); Platelet Count 373 K/mcL (140-400); Red Blood Count 3.35 M/mcL (4.19-5.50); Red Cell Distribution Width 20.8 % (11.5-14.5); White Blood Count 8.3 K/mcL (4.3-11.1)
[2021-06-04 03:34] LABS: BUN/Creatinine Ratio 16 (6-26); Blood Urea Nitrogen 22 mg/dL (8-23); Calcium 8.5 mg/dL (8.6-10.3); Carbon Dioxide 23 mEq/L (23-29); Chloride 106 mEq/L (98-107); Glucose 117 mg/dL (70-105); Osmolality,Calculated 290 (280-300); Potassium 4.2 mEq/L (3.5-5.1); Sodium 138 mEq/L (136-145); Troponin I < 0.03 ng/mL (< 0.04); eGFR For African Americans > 60 (> 60); eGFR For Non-African Americans 52 (> 60)
[2021-06-04 03:38] LABS: Hemoglobin 5.7 g/dL (12.9-16.9)
[2021-06-04 03:56] LABS: Anisocytosis 3+ (Not Present); Microcytosis Present (Not Present)
[2021-06-04 03:57] LABS: Hypochromasia Present (Not Present); Ovalocytes 1+ (Not Present); Platelet Estimate Normal (Normal); Poikilocytosis 2+ (Not Present); Schistocytes 1+ (Not Present)
[2021-06-04 04:20] LABS: Influenza A PCR Negative (Negative); Influenza B PCR Negative (Negative); Resp. Syncytial Virus PCR Negative (Negative)
[2021-06-04 04:22] LABS: SARS-CoV-2 by PCR (In House) Negative (Negative)
[2021-06-04] MEDS ORDERED: Pantoprazole 40 MG VIAL IVP ONE (06:41)
[2021-06-04] MEDS ORDERED: Water for inj. (sterile) 10 ML ONE (06:50)
[2021-06-04] MEDS: Pantoprazole 40 MG in 0.9 % Sodium Chloride Mini Bag 100 ML IVC SCH ×4 (07:04→23:10)
[2021-06-04] MEDS ORDERED: Naloxone 0.4 MG/ML INJ IVP PRN (07:36)
[2021-06-04] MEDS ORDERED: Ondansetron 4 MG/2 ML VIAL IVP PRN (07:36)
[2021-06-04] MEDS ORDERED: Furosemide 20 MG/2 ML VIAL IVP ONE ×2 (07:44→15:42)
[2021-06-04] MEDS ORDERED: methylPREDNISolone 125 MG/2 ML VIAL IVP ONE (07:45)
[2021-06-04] MEDS ORDERED: 0.9 % Sodium Chloride 500 ML ONE (10:02)
[2021-06-04] MEDS: Ipratropium/Albuterol Neb 3 ML IH SCH ×3 (10:44→21:14)
[2021-06-04] MEDS ORDERED: Perflutren Lipid Microsphere 1.3 ML in 0.9 % Sodium Chloride 8.7 ML IVP PRN (14:54)
[2021-06-04 15:07] LABS: Hematocrit 22.7 % (37.5-50.1); Hemoglobin 6.5 g/dL (12.9-16.9)
[2021-06-04 15:16] LABS: INR 1.2; Prothrombin Time 13.2 Seconds (9.4-12.1)
[2021-06-04 15:18] LABS: Activated Partial Thrombo Time 33.3 Seconds (26.0-36.0)
[2021-06-04] MEDS: methylPREDNISolone 125 MG/2 ML VIAL IVP SCH (15:28)
[2021-06-04 15:32] LABS: % Iron Saturation 6 % (20-55); Iron 27 mcg/dL (65-175); Transferrin 305 mg/dL (203-362)
[2021-06-04] MEDS ORDERED: 0.9 % Sodium Chloride 250 ML IVC SCH (15:45)
[2021-06-04 16:00] LABS: Folate > 22.3 ng/mL (3.0-16.0); Vitamin B12 376 pg/mL (250-1100)
[2021-06-04] MEDS ORDERED: methylPREDNISolone 125 MG/2 ML VIAL IVP SCH (16:00)
[2021-06-05] MEDS: methylPREDNISolone 125 MG/2 ML VIAL IVP SCH ×3 (02:05→17:11)
[2021-06-05] MEDS: Pantoprazole 40 MG in 0.9 % Sodium Chloride Mini Bag 100 ML IVC SCH (02:28)
[2021-06-05 02:42] LABS: Basophils % 0.1 %; Immature Granulocytes % 0.8 % (0-4); Red Cell Distribution Width 24.3 % (11.5-14.5)
[2021-06-05 02:43] LABS: Hematocrit 22.6 % (37.5-50.1); Hemoglobin 6.7 g/dL (12.9-16.9); Lymphocytes # 0.6 K/mcL (0.6-4.6); Lymphocytes % 6.6 %; Mean Corpuscular HGB Conc 29.6 g/dL (31.6-35.5); Mean Corpuscular Hemoglobin 19.1 pg (28.0-33.3); Mean Corpuscular Volume 64.6 fL (83.0-100.0); Mean Platelet Volume 10.1 fL (9.4-12.4); Monocytes # 0.2 K/mcL (0.0-1.3); Monocytes % 2.1 %; Neutrophils # 7.5 K/mcL (1.6-8.9); Platelet Count 373 K/mcL (140-400); Segmented Neutrophils % 90.4 %; White Blood Count 8.3 K/mcL (4.3-11.1)
[2021-06-05 02:52] LABS: Albumin 4.1 g/dL (3.5-5.7); Albumin/Globulin Ratio 1.4 (1.1-2.2); Bilirubin,Total 1.1 mg/dL (0.3-1.0); Calcium 8.5 mg/dL (8.6-10.3); Chol/HDL Ratio 2.9 (0-4.9); Potassium 3.9 mEq/L (3.5-5.1); Total Protein 7.1 g/dL (6.4-8.9)
[2021-06-05] MEDS: Ipratropium/Albuterol Neb 3 ML IH SCH ×4 (04:06→20:53)
[2021-06-05] MEDS ORDERED: Morphine Sulfate 2 MG/ML SYRINGE IVP ONE (04:29)
[2021-06-05] MEDS ORDERED: *HR* Metoprolol 5 MG/5 ML VIAL IVP ONE (04:29)
[2021-06-05 05:48] LABS: Anisocytosis 3+ (Not Present); Microcytosis Present (Not Present); Ovalocytes 2+ (Not Present); Poikilocytosis 2+ (Not Present)
[2021-06-05 05:49] LABS: Platelet Estimate Normal (Normal)
[2021-06-05] MEDS ORDERED: 0.9 % Sodium Chloride 250 ML IVC SCH (07:30)
[2021-06-05] MEDS ORDERED: Metoprolol XL (24 HR) Succ 50 MG TAB.ER.24H PO SCH (09:00)
[2021-06-05] MEDS ORDERED: Furosemide 20 MG/2 ML VIAL IVP SCH (09:00)
[2021-06-05] MEDS: Pantoprazole 40 MG VIAL IVP SCH ×2 (10:05→17:11)
[2021-06-05 13:13] LABS: Hematocrit 25.1 % (37.5-50.1); Hemoglobin 7.4 g/dL (12.9-16.9)
[2021-06-06] MEDS: methylPREDNISolone 125 MG/2 ML VIAL IVP SCH ×2 (00:20→10:50)
[2021-06-06] MEDS: Ipratropium/Albuterol Neb 3 ML IH SCH ×3 (03:46→15:52)
[2021-06-06] MEDS: Pantoprazole 40 MG VIAL IVP SCH (05:35)
[2021-06-06 06:14] LABS: Hematocrit 26.6 % (37.5-50.1); Hemoglobin 8.1 g/dL (12.9-16.9); Mean Corpuscular HGB Conc 30.5 g/dL (31.6-35.5); Mean Corpuscular Hemoglobin 20.7 pg (28.0-33.3); Mean Platelet Volume 9.7 fL (9.4-12.4); Platelet Count 363 K/mcL (140-400); Red Blood Count 3.91 M/mcL (4.19-5.50); Red Cell Distribution Width 27.2 % (11.5-14.5)
[2021-06-06 06:24] LABS: BUN/Creatinine Ratio 22 (6-26); Blood Urea Nitrogen 31 mg/dL (8-23); Calcium 8.7 mg/dL (8.6-10.3); Carbon Dioxide 22 mEq/L (23-29); Chloride 105 mEq/L (98-107); Glucose 166 mg/dL (70-105); Osmolality,Calculated 292 (280-300); Potassium 4.5 mEq/L (3.5-5.1); Sodium 136 mEq/L (136-145); eGFR For African Americans > 60 (> 60); eGFR For Non-African Americans 51 (> 60)
[2021-06-06 06:33] LABS: White Blood Count 16.2 K/mcL (4.3-11.1)
[2021-06-06] MEDS ORDERED: Lidocaine -MPF 2% 2 ML VIAL ONE (08:31)
[2021-06-06] MEDS ORDERED: *HR* Propofol 200 MG/20 ML VIAL IVP ONE (10:05)
[2021-06-06 15:47] VITALS: BP 132/72; PULSE 78; TEMP 97.7
[2021-06-06 17:02] VITALS: O2SAT 93
== END 2021-06-06 16:32 | disposition home or self-care (01) ==
LOC: 3ANU 02:11 → EMEROOARM 02:11 → SUATTDRO 07:17 → 3ANU 08:33
PROVIDERS: ADMIT Student in an Organized Health Care Education/Training Program; ATTEND Internal Medicine
PROC: ENDOEBX (2021-06-06 08:30)